=== PATIENT | female | born 1980 | race Caucasian/White ===

== ENCOUNTER → 2018-06-26 15:12 | Outpatient (CLI) | payer BC, SELFPAY ==
[2015-06-03 06:14] VITALS: BMI 37.7
[2018-06-30 11:59] LABS: HPV Reflexed? NOT INDICATED
== END ==
PROVIDERS: Visit Provider Obstetrics & Gynecology
DX: Z12.4 Encounter for screening for malignant neoplasm of cervix (principal)
CPT/HCPCS: 88175; G0145

== ENCOUNTER → 2020-03-23 15:00 | Outpatient (CLI) | payer BC, SELFPAY ==
--- NOTE | 2020-03-23 15:02 | BI_ITS ---
MAMMOGRAPHY - BILATERAL SCREENING REASON FOR EXAM: Female, 40 years old. Routine annual screening examination. PERTINENT HISTORY: Non-contributory. TECHNIQUE: Digital bilateral breast garrett (3D mammographic acquisition) in the CC and MLO projections. 2-D mediolateral oblique (MLO) and craniocaudad (CC) views of both breasts were obtained. CAD: Full Field Digital Mammography with Computer Added Detection was performed. COMPARISON: None. Baseline examination. FINDINGS: Breast Composition: The breasts are extremely dense, which lowers the sensitivity of mammography. There are no dominant masses or suspicious calcifications. No other significant abnormalities are identified. BI/SCREEN MAMM (CAD) W/GARRETT BILAT IMPRESSION: Negative screening mammogram. Yearly followup mammogram recommended. (A) ASSESSMENT CATEGORY: BIRADS Category 1: Negative. A letter regarding these results will be sent to the patient by the facility within 30 days. Approximately 10% of breast cancers are not detected by mammography. A normal mammogram should not delay biopsy of a clinically suspicious abnormality. [id number] Electronically Signed: Asaf Childress, at 8:02 EST , Service support ,
== END ==
PROVIDERS: PCP Physician Assistant; Referring Provider Student in an Organized Health Care Education/Training Program; Visit Provider Student in an Organized Health Care Education/Training Program
DX: Z12.31 Encounter for screening mammogram for malignant neoplasm of breast (principal)
CPT/HCPCS: 77063; 77067

== ENCOUNTER 2021-07-22 17:23 | Outpatient (CLI) | payer BC, SELFPAY ==
[2021-07-29 13:04] LABS: HPV APTIMA, High Risk Negative (Negative)
== END 2021-07-22 23:59 | disposition home or self-care (01) ==
PROVIDERS: PCP Physician Assistant; Referring Provider Student in an Organized Health Care Education/Training Program; Visit Provider Student in an Organized Health Care Education/Training Program
DX: Z12.4 Encounter for screening for malignant neoplasm of cervix (principal)
CPT/HCPCS: 87624; 88175; G0145

== ENCOUNTER → 2021-08-23 | Outpatient (CLI) | payer BC, SELFPAY ==
--- NOTE | 2021-08-23 15:37 | BI_ITS ---
MAMMOGRAPHY - BILATERAL SCREENING REASON FOR EXAM: Female, 41 years old. Routine annual screening examination. PERTINENT HISTORY: Non-contributory. TECHNIQUE: Digital bilateral breast garrett (3D mammographic acquisition) in the CC and MLO projections. 2-D mediolateral oblique (MLO) and craniocaudad (CC) views of both breasts were obtained. CAD: Full Field Digital Mammography with Computer Added Detection was performed. COMPARISON: Comparison is made with prior study dated 03/23/2020. FINDINGS: Breast Composition: The breasts are extremely dense, which lowers the sensitivity of mammography. There are no dominant masses or suspicious calcifications. No other significant abnormalities are identified. There has been no significant change since the prior study. BI/SCRN MAMM (CAD)W/GARRETT BILAT IMPRESSION: Stable bilateral screening mammogram. Yearly follow-up mammogram recommended. (A) ASSESSMENT CATEGORY: BIRADS Category 1: Negative. A letter regarding these results will be sent to the patient by the facility within 30 days. Approximately 10% of breast cancers are not detected by mammography. A normal mammogram should not delay biopsy of a clinically suspicious abnormality. [id number] Electronically Signed: Asaf Childress MD at 8:22 EDT ,
== END | disposition home or self-care (01) ==
LOC: OPBI 15:34
PROVIDERS: PCP Physician Assistant; Visit Provider Student in an Organized Health Care Education/Training Program
DX: Z12.31 Encounter for screening mammogram for malignant neoplasm of breast (principal)
CPT/HCPCS: 77063; 77067

== ENCOUNTER 2024-10-23 06:28 | Emergency (ER) | payer BC, SELFPAY ==
[2024-10-23 06:29] VITALS: BP 156/98; PULSE 84; RESP 18; TEMP 36.6; O2SAT 100; BMI 35.7
--- NOTE | 2024-10-23 06:49 | US_ITS ---
EXAM: US Abdomen Limited, Right Upper Quadrant CLINICAL INDICATION: ABDOMEN PAIN TECHNIQUE: Real-time ultrasound of the right upper quadrant with image documentation. COMPARISON: No relevant prior studies available. FINDINGS: LIVER: Liver measures up to 16.5 cm. No intrahepatic bile duct dilation. GALLBLADDER: Cholelithiasis. Negative Xie's sign was reported by the professor computer science. COMMON BILE DUCT: Unremarkable as visualized. No stones. No dilation. Common bile duct measures 0.54 cm in diameter. PANCREAS: Unremarkable as visualized. RIGHT KIDNEY: Unremarkable. No stones. No hydronephrosis. The right kidney measures 11.5 x 6.0 x 5.0 cm. US/Abdomen Limited IMPRESSION: Cholelithiasis. No convincing evidence of acute cholecystitis. Reading [facility]
--- NOTE | 2024-10-23 06:50 | EDS_ITS ---
HPI History of Present Illness Chief Complaint: Abd Pain Detail of Chief Complaint: Right upper quadrant abdominal pain radiates to her back Informant: patient Onset/Context/Timing Onset: Today (0230) Context: Sudden Onset Timing: Continuous and Waxes and wanes Quality: Fullness, discomfort Location: Right upper quadrant Current Severity: Mild Maximum Severity: Severe Worsened by: Nothing Relieved by: Nothing Associated Symptoms Associated Symptoms: Nausea Narrative Narrative: Patient is a 44-year-old woman who is present on her menses who presents with right upper quadrant pain rating to her back that awoke her from sleep at 0230. Last evening she had chicken with potato and vegetables. She did have butter on her potato and vegetables. At 2230 she had cookies and donuts. She has had pain in the past but nothing that lasted this long. Her mother, sister and brother all had their gallbladder removed. She has had 2 C-sections. She denies any change in her bowels i.e. color, consistency or caliber. She denies fever, chills night sweats. She denies vomiting or diarrhea. She denies cough or shortness of breath. She denies discomfort with breathing. Prior similar symptoms: No Recent Illness/Hospitalization: No PFSH PFS Medical History Marijuana smoker Home Medications ?Medication ?Instructions ?Recorded ?Last Taken ?Type NK 10/23/24 Unknown History Allergy/AdvReac Type Severity Reaction Status Date / Time latex Allergy Rash Verified 10/23/24 06:29 diphenhydramine HCl (From AdvReac Other Verified 10/23/24 06:29 Benadryl) Family History other other (Multiple for members with cholecystitis/cholelithiasis.) Surgical History Hx of section Social History (Updated 10/23/24 @ 06:[address] Garfield Bruner MD) household members: spouse and children Smoking Status: Current every day smoker tobacco type: cigarettes ROS ROS ED Constitutional Constitutional ED: Denies chills, fever(s), subjective or sweats Cardiovascular Cardiovascular: Denies chest pain, orthopnea, palpitations or paroxysmal nocturnal dyspnea Respiratory/Chest Respiratory/Chest: Denies cough, dyspnea, dyspnea on exertion, orthopnea or paroxysmal nocturnal dyspnea Gastrointestinal Gastrointestinal: Reports abdominal pain; Denies constipation, diarrhea, melena or vomiting Genitourinary Genitourinary ED: Reports LMP (females 10-50) Details: Comment: (Currently); Denies dysuria, hematuria or urinary frequency Musculoskeletal Musculoskeletal: Reports back pain and other Details: Intrascapular back pain ; Denies arthralgias or myalgias Integumentary Denies rash Endocrine Endocrinology: Denies cold intolerance or heat intolerance Hematologic/Lymphatic Hematologic/Lymphatic: Reports systems reviewed and no addt'l complaints, except as documented EXAM Physical Exam Const Vital Signs: 10/23/24 06:29 10/23/24 09:40 Temperature 97.9 F Temperature Source Oral Pulse Rate 84 76 Respiratory Rate 18 19 H Blood Pressure 156/98 H Blood Pressure Mean 117 Pulse Ox 100 Oxygen Delivery Method Room Air Positive well nourished and well developed Constitutional Narrative: BMI is 35.7. Patient does not appear in any obvious distress. General Appearance ED: well developed; Negative for cyanotic, diaphoretic or pallor HEENT Reports moist mucous membranes HEENT Narrative: Head is atraumatic no cephalic. Ears normal. Nares patent. Posterior pharynx normal. Eyes PERRL and EOMs intact bilaterally General Eye ED: Negative for scleral icterus Neck no lymphadenopathy, supple and no JVD Resp normal respiratory effort and clear to auscultation bilaterally Cardio regular rate, regular rhythm, S1 normal heart sound, S2 normal heart sound and no murmurs GI non-distended and no masses; Negative for non-tender or hepatosplenomegaly Auscultation: hypoactive bowel sounds Palpation: soft and tender RUQ and Xie's sign; Negative for splenomegaly, mass or rebound tenderness present Back/Spine no CVA tenderness Extremity normal to inspection General Extremety ED: Negative for edema General Extremity: Negative for edema Neuro oriented x3 and CN's II-XII intact bilaterally Sensorium / Orientation: alert Psych mental status grossly normal Skin no rashes or lesions noted, no wounds and skin turgor normal General Skin Exam: Negative for jaundice or pallor MDM MDM MDM Narrative Medical decision making narrative: Patient with right upper quadrant pain. Differential diagnosis is biliary colic, cholelithiasis, acute cholecystitis, peptic ulcer disease, lower lobe pneumonia, abdominal pain of unknown etiology, atypical presentation for ureterolithiasis. Since she has not had a need to eat since 20-30 last evening ultrasound of the gallbladder was ordered as well as appropriate labs which included CBC, hepatic panel and lipase. Patient was medicated with IV ketorolac. Patient states she has difficulty swallowing pills. History & Record Review Additional record(s) reviewed:: Prior inpatient record (Notes by Saad Marcial for delivery May 2015.) Lab Data Attestation: I reviewed the patient's lab results. (CBC is unremarkable. Electrolyte panel is unremarkable. Glucose is elevated 109. Liver enzymes and lipase are normal.) Labs: Laboratory Results - last 24 hr 10/23/24 06:45 WBC 10.3 RBC 5.24 Hgb 14.2 Hct 43.3 MCV 82.6 MCH 27.1 MCHC 32.8 RDW Std Deviation 45.6 H RDW Coeff of [place] 15.2 H Plt Count TNP MPV 10.9 Immature Gran % (Auto) 0.400 Neut % (Auto) 60.1 Lymph % (Auto) 29.7 [place] % (Auto) 6.0 Eos % (Auto) 3.2 Baso % (Auto) 0.6 Absolute Neuts (auto) 6.2 Absolute Lymphs (auto) 3.04 Nucleated RBC % 0 Differential Comment SCANNED Platelet Estimate ADEQUATE Plt Morphology Comment CLUMPED Sodium 137 Potassium 5.0 Chloride 103 Carbon Dioxide 22.4 Anion Gap 12 BUN 13 Creatinine 0.73 Estim Creat Clear Calc 109.58 Est GFR (MDRD) Non-Af 103 BUN/Creatinine Ratio 17.5 Glucose 109 H Calcium 9.1 Total Bilirubin 0.20 Direct Bilirubin < 0.08 AST 27 ALT 21 Alkaline Phosphatase 75 Total Protein 7.3 Albumin 4.1 Globulin 3.2 Lipase 47 Radiography Diagnostic Testing: Clinical Impression(s) from Imaging Studies Abdomen Ultrasound 10/23/24 06:49 IMPRESSION: Cholelithiasis. No convincing evidence of acute cholecystitis. Reading Location: [facility] There are stones noted in the gallbladder. Gallbladder wall is slightly thickened. There is no evidence of pericholecystic fluid. Awaiting formal read by radiologist, 0940 Treatment and Re-Evaluation :: Patient was informed at 1011 radiologist to patient. Since she is pain-free will discharge home with appropriate home-going instruction and referral to Dr. Stovall. Discharge Plan Triage Chief Complaint: Abd Pain ED Provider: Garfield Bruner Dx/Rx/DC Orders Clinical Impression: Cholelithiasis, Biliary colic, Adult BMI 35.0-35.9 kg/sq m, Elevated blood- pressure reading without diagnosis of hypertension Instructions: ED Gallstones with Biliary Colic, ED Hypertension, To Be Confirmed Prescriptions: No Action NK Primary Care Provider: Jair Barragan Referrals: Chaparrita Stovall MD [Med Staff - Active Staff] - 5-7 Days Thom Geller PA [Non-Staff] - 1-2 Weeks Activity Restrictions/Additional Instructions: Your blood pressure is elevated. You should have this reassessed in 1 to 2 weeks. You are referred to a surgeon because you have gallstones and this is the cause of your intermittent pain and pain last evening. Recommend contacting her for follow-up and discuss treatment options Print Language: [place]an Disposition Disposition: Home, Self Care
[2024-10-23 07:05] LABS: Hematocrit 43.3 % (37-47); Hemoglobin 14.2 g/dL (12.0-15.0); Immature Granulocytes Count 0.040 X10^3/uL (0.0-0.0); Mean Corp Hgb Conc 32.8 g/dL (32-36); Mean Corpuscular Volume 82.6 fL (81-99); Mean Platelet Vol. 10.9 fl (6.2-12.0); NRBC Flagged by Analyzer 0 % (0-5); POSITIVE COUNT YES; RBC Distribution Width CV 15.2 % (11.6-14.6); RBC Distribution Width SD 45.6 fl (35.1-43.9); Red Blood Count 5.24 M/mm3 (4.2-5.4); White Blood Count 10.3 K/mm3 (4.4-11.0)
[2024-10-23 07:26] LABS: Differential Indicated SCAN CRITERIA MET
[2024-10-23 07:27] LABS: Differential Comment SCANNED
[2024-10-23 07:28] LABS: Lipase 47 U/L (13-75)
[2024-10-23 07:35] LABS: AST(SGOT) 27 U/L (<=31); Alanine Aminotransfer ALT/SGPT 21 U/L (<=34); Albumin, Serum 4.1 g/dL (3.5-5.0); Alkaline Phosphatase 75 U/L (35-104); Anion Gap 12 (5-15); BUN 13 mg/dL (4-19); BUN/Creat Ratio 17.5 RATIO (10-20); Bilirubin, Direct < 0.08 mg/dL (0.00-0.30); Calcium,Total 9.1 mg/dL (7.6-11.0); Carbon Dioxide 22.4 mmol/L (21.0-32.0); Chloride 103 mmol/L (98-108); Estimated Creatinine Clearance 109.58 ml/min (50-250); Globulin 3.2 g/dL (2.2-4.2); Glucose 109 mg/dL (70-99); Potassium 5.0 mmol/L (3.3-5.1)
--- OUTSIDE RECORDS SUMMARY | 2024-10-23 07:51 | XMS RPT_ITS | CCD ---
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 Helper Name Role Phone Thom Geller PA-C Primary Care Provider Thom GELLER Primary Care Unavailable Thmo GELLER Referring Unavailable GELLERThom Primary Care Unavailable Thom GELLER Referring Unavailable GELLERThom Primary Care Unavailable GELLERThom Referring Unavailable GELLERThom Primary Care Unavailable Thom GELLER Attending Unavailable GELLERThom Primary Care Unavailable MARGARET TURNER Attending Unavailable GELLERThom Primary Care Unavailable GELLERThom Attending Unavailable GELLERThom Primary Care Unavailable GELLER, Thom NEELY Primary Care Unavailable GELLER, Thom STANLEYFLORINDA Referring Unavailable Allergies Allergy Classification Reported Allergen(s) Allergy Type Date of Onset Reaction(s) Facility (17 sources) Latex; Translations: [LATEX] Propensity to adverse reactions 08-01-19 08 Rash [facility] Work Phone: (15 sources) Seasonal allergy; Translations: [SEASONAL ALLERGIES] Allergy to substance 12-25-19 19 Other: See Comments [facility] Work Phone: (2 sources) diphenhydrAMINE Drug Allergy 06-03-19 16 Other [facility] Work Phone: Medications Current Medications Medication Drug Class(es) Dates Sig (Normalized) Sig (Original) benzonatate 100 mg oral capsule (1 source) Non-narcotic Antitussive Start: 09-06-2023 End: 09-13-2023 take 1 capsule by mouth every eight hours as needed benzonatate (TESSALON PERLE) 100 mg capsule Take 1 capsule by mouth three times a day as needed for cough for up to 7 days. 21 capsule 0 09/06/2023 09/13/2023 Active calcium carbonate 500 mg chewable tablet (2 sources) Start: 06-03-2015 take 500 mg by mouth every four hours as needed Calcium Carbonate Active 500 MG PO EVERY 4 HOURS NEEDED June 03, 2015 7:17am docusate sodium 50 mg / sennosides, longterm 8.6 mg oral tablet (2 sources) Start: 06-05-2015 take 1 tablet by mouth once daily Sennosides-Docusa te Sodium (Stool Softener-Stimulan t Laxat) 1 TABLET tablet Active 1 TABLET PO DAILY June 05, 2015 9:11am fluticasone propionate 0.05 mg/actuat metered dose nasal spray (3 sources) Corticosteroid Start: 09-06-2023 take 1 spray(s) nasal route once daily fluticasone (FLONASE ALLERGY RELIEF) 50 mcg/actuation nasal spray Use 1 Bowler in each nostril once daily. 11.1 mL 0 09/06/2023 Active naproxen 250 mg oral tablet (2 sources) Nonsteroidal Anti-inflammatory Drug Start: 06-05-2015 take 250-500 mg by mouth every eight hours as needed Naproxen Active 250 - 500 MG PO EVERY 8 HOURS NEEDED June 05, 2015 9:11am oxyCODONE hydrochloride 5 mg oral tablet (2 sources) Opioid Agonist Start: 06-05-2015 take 5-10 mg by mouth every four hours as needed Oxycodone Active 5 - 10 MG PO EVERY 4 HOURS NEEDED June 05, 2015 9:11am PARoxetine hydrochloride 10 mg oral tablet (2 sources) Serotonin Reuptake Inhibitor Start: 09-26-2023 take 1 tablet by mouth once daily PARoxetine (PAXIL) 10 mg tablet Indications: Menstrual-related mood disorder , GUI (generalized anxiety disorder) Take 1 tablet by mouth once daily. 30 tablet 2 09/26/2023 Active Vit,Nqgf77-Hjwd-Pxf ic (Prenatabs Fa) 1 TABLET tablet (2 sources) Start: 06-03-2015 take 1 tablet by mouth once daily Vit,Mhjx35-Diqu-W olic (Prenatabs Fa) 1 TABLET tablet Active 1 TABLET PO DAILY June 03, 2015 7:17am Completed/Discontinued Medications Medication Drug Class(es) Dates Sig (Normalized) Sig (Original) busPIRone hydrochloride 10 mg oral tablet (3 sources) Start: 11-23-2020 End: 11-07-2022 take 1 tablet by mouth twice daily busPIRone (BUSPAR) 10 mg tablet Indications: Adjustment reaction with anxiety and depression Take 1 tablet by mouth twice daily. 60 tablet 2 11/23/2020 11/07/2022 Discontinued (Discontinued by Patient) Comment on above: Take 1 tablet by anastacio twice daily. lidocaine hydrochloride 20 mg/ml mucous membrane topical solution (1 source) Antiarrhythmic, Amide Local Anesthetic Start: 09-18-2022 End: 11-07-2022 LIDOCAINE VISCOUS 2 % solution Indications: Sore throat Take 5-10 mL by mouth four times daily as needed. 100 mL 1 09/18/2022 11/07/2022 Discontinued (Course of therapy completed) Comment on above: Take 5-10 mL by mout h four times daily as needed. polymyxin b [id number] unt/ml / trimethoprim 1 mg/ml ophthalmic solution (3 sources) Dihydrofolate Reductase Inhibitor Antibacterial, Polymyxin-class Antibacterial Start: 03-05-2021 End: 11-07-2022 take 1 drop(s) into the eye(s) four times daily trimethoprim-poly myxin (POLYTRIM) 10,000 unit- 1 mg/mL ophthalmic solution Use 1 Drop in both eyes four times daily. 10 mL 0 03/05/2021 11/07/2022 Discontinued (Course of therapy completed) Comment on above: Use 1 Drop in both e yes four times daily. 24 hr venlafaxine 150 mg extended release oral capsule (3 sources) Serotonin and Norepinephrine Reuptake Inhibitor Start: 10-01-2019 End: 11-07-2022 take 1 capsule by mouth once daily venlafaxine ER (EFFEXOR XR) 150 mg 24 hr capsule Indications: Adjustment reaction with anxiety and depression Take 1 capsule by mouth once daily. 90 capsule 3 10/01/2019 11/07/2022 Discontinued (Discontinued by Patient) Comment on above: Take 1 capsule by mo [facility] once daily. Problems Active Problems Problem Classification Problem Date Documented Date Episodic/Chronic Adjustment disorders (15 sources) Adjustment disorder with mixed anxiety and depressed mood; Translations: [Adjustment disorder with mixed anxiety and depressed mood] Onset: 01-13-2009 01-14-2019 Chronic Anxiety disorders (2 sources) Mixed anxiety and depressive disorder; Translations: [Other specified anxiety disorders] Chronic Immunizations and screening for infectious disease (4 sources) Viral screening status; Translations: [Encounter for screening for other viral diseases] Onset: 11-07-2022 11-07-2022 Episodic Mood disorders (1 source) Premenstrual tension syndrome; Translations: [Mood disorder due to known physiological condition, unspecified] 09-26-2023 Episodic Other circulatory disease (1 source) Elevated blood-pressure reading without diagnosis of hypertension; Translations: [Elevated blood-pressure reading, without diagnosis of hypertension] Episodic Other female genital disorders (14 sources) Premenstrual tension syndrome; Translations: [Premenstrual tension syndrome] Onset: 01-04-2013 01-04-2013 Chronic Other screening for suspected conditions (not mental disorders or infectious disease) (20 sources) Patient encounter status; Translations: [Encounter for screening mammogram for malignant neoplasm of breast] Onset: 11-07-2022 Episodic Other upper respiratory infections (1 source) Acute upper respiratory infection; Translations: [Acute upper respiratory infection, unspecified] 09-27-2023 Episodic Substance-related disorders (14 sources) Tobacco dependence syndrome; Translations: [Nicotine dependence, unspecified, uncomplicated] Onset: 01-13-2009 01-13-2009 Chronic Viral infection (1 source) Viral disease; Translations: [Viral infection, unspecified] 09-06-2023 Episodic Past or Other Problems Problem Classification Problem Date Documented Da te Episodic/Chronic Malaise and fatigue (4 sources) Attacks of weakness; Translations: [Weakness] Onset: 11-07-2022 11-07-2022 Episodic Residual codes; unclassified (14 sources) Family history of diabetes mellitus type 2; Translations: [Family history of diabetes mellitus] Onset: 10-01-2019 10-01-2019 Episodic Results Test Name Value Interpretation Reference Range Facil ity Aram 11-01-2023 CNCO Letter Text Normal [facility] Cyndie 10-18-2023 CNOV Office Visit (OBGYWM ) MICHELLE ELLIS ([id number]) 1980 F Date Time Provider Department 10/18/23 2:20 PM MARGARET TURNER During your visit today, we recorded the following information about you: Blood pressure Weight Height Last Period 110/80 91.8 kg 1.613 m 10/11/23 Margaret Turner MD 10/18/2023 2:52 PM Signed Vice President Business Development offered: Patient declinesChantle Martinez is a 43 year old who presents for an annual gynecologic exam without complaints. Recently prescribed paxil for premenstrual rage. Has not picked it up yet. Menses: cycles every 23-33 days and 2-3 days of flow. Contraception: tubal sterilization HPV vaccine: No Last Pap: normal HPV: negative History of abnormal pap: No Last mammogram: 2022normal Sexually active: Yes OB History T0 L0 SAB0 IAB0 Ectopic0 Multiple0 Live Births0 Belly Packer History LMP: 10/11/2023, Having periods Age at Menarche: Age at First : Age at Menopause: Belly Packer History Comments: Sexual Activity: Yes; Male Contraception: Tubal Ligation PAST MEDICAL HISTORY Diagnosis Date NEGATIVE MEDICAL HISTORY PAST SURGICAL HISTORY Procedure Laterality Date NONE FAMILY HISTORY Problem Relation Age of Onset Thyroid Mother other (prediabetes) Mother Cancer Father throat Bipolar disorder Brother Schizophrenia Brother Learning disabilities Brother No Known Problems Brother No Known Problems Brother No Known Problems Brother No Known Problems Brother No Known Problems Brother Thyroid Maternal Grandmother Heart Maternal Grandfather Lung Cancer Paternal Grandmother Colon Cancer Paternal Grandfather Diabetes Paternal Aunt Diabetes Paternal Uncle Diabetes Other SOCIAL HISTORY Social History Tobacco Use Smoking status: Every Day Packs/day: 1 Types: Cigarettes Smokeless tobacco: Never Vaping Use Vaping Use: Former Substance Use Topics Alcohol use: Yes Comment: 4 beers/ night Drug use: No REVIEW OF SYSTEMS Abdomen: No abdominal pain, nausea, vomiting, diarrhea, or constipation. No bloating, early satiety, indigestion, or increased flatulence. Bladder: No dysuria, gross hematuria, urinary frequency, urinary urgency, or incontinence. Breast: No breast lumps, nipple d/c, overlying skin changes, redness or skin retraction. Allergies and current medication updated:Yes EXAM: BP 110/80 Ht 5' 3.5 (1.61m) Wt 202 lb 6.4 oz (91.8kg) LMP 10/11/2023 BMI 35.29 kg/(m2). GENERAL: pleasant, female in no apparent distress HEENT: Normocephalic, atraumatic, mucus membranes moist, and no lesions NECK: Supple, full range of motion, no adenopathy, and thyroid normal DERMATOLOGY: Normal, without lesions, non-icteric, and non-hirsute BREAST: soft, non-tender, symmetric, no dominant mass, normal nipple-areolar complex, no lymphadenopathy, and no nipple discharge CHEST: Normal inspiratory effort ABDOMEN: soft, non-tender, and no masses PELVIC: external genitalia normal, normal Bartholin's glands, urethra, [place]'s glands, no vulvar lesions, no cervical lesions, good vaginal support, physiologic discharge present, normal appearing perineal body and perianal region BIMANUAL: uterus normal size, shape and consistency, no adnexal masses, and non-tender RECTOVAGINAL: deferred. NEURO: alert and oriented x3,exam grossly non-focal EXTREMITIES: normal ASSESSMENT/PLAN: 1) Health maintenance: Pap done with HPV. Mammogram up to date . 2) Contraception: tubal sterilization. Contraceptive options reviewed and information provided. 3) STD screening: Declined STD check. 4) Follow up one year or sooner as needed MD Vicente Christina Rebecca L, MD 10/31/2023 3:11 PM Signed Send letter about normal pap if she does not have mychart. MD Marjorie Cantu Michelle 11/01/2023 8:20 AM Signed Sent letter via my chart Allergies As of Date: 10/18/2023 Noted Allergy Reaction LATEX 08/01/2007 SEASONAL ALLERGIES 12/24/2018 14 - Other: See Comments Date Reviewed: 10/18/2023 Reviewed by: Margaret Turner MD - Fully Assessed Reason for Visit: Well Woman [1463] Primary Visit Diagnosis:Encounter for gynecological examination (general) (routine) without abnormal findings [Z01.419] Other Visit Diagnoses:Screening for cervical cancer [Z12.4] Encounter for screening for human papillomavirus (HPV) [Z11.51] Encounter for screening mammogram for breast cancer [Z12.31] Order(s):PAP TEST [[id number]] Order #: [id number]. #:[id number] HIGH RISK HUMAN PAPILLOMA VIRUS (HPV), PCR FOR DETECTION AND GENOTYPING [[id number]] Reflex Order#: [id number] (Ord#:[id number])Spec. #:[id number] Prescriptions as of 11/01/2023 - PARoxetine (PAXIL) 10 mg tablet Take 1 tablet by mouth once daily. - fluticasone (FLONASE ALLERGY RELIEF) 50 mcg/actuation nasal spray Use 1 Bowler in each nostril once mike (more content not included)... Normal [facility] HIGH RISK HUMAN PAPILLOMA BRADY (HPV), PCR FOR DETECTION AND GENOTYPINGon 10-18-2023 HPV 16 Ag Ql (Unsp spec) Not detected Normal Not detected [facility] Comment on above: Order Comment: Speci men Type: FLUID SPECIMENOrdering Facility: [facility] Address: [address] [place] [address] Performed By: #### H PVHRT, [id number] ####[facility] LABIA [id number] [place] [address] [place] HPV 18 Ag Ql (Unsp spec) Not detected Normal Not detected [facility] Comment on above: Order Comment: Speci men Type: FLUID SPECIMENOrdering Facility: [facility] Address: [address] [place] [address] Performed By: #### H PVHRT, [id number] ####[facility] LABIA [id number] [place] [address] [place] HPV 31+33+35+39+45+51+5 2+56+58+59+66+68 DNA ROSA ISELA+probe Ql (Cvx) Not detected Normal Not detected [facility] Comment on above: Order Comment: Speci men Type: FLUID SPECIMENOrdering Facility: [facility] Address: [address] [place] [address] Result Comment: High Risk HPV Other Type includes HPV types 31, 33, 35, 39, 45, 51, 52, 56, 58, 59, 66 and 68. Performed By: #### H PVHRT, [id number] ####[facility] LABCLIA [id number] [address] [address] [place] PAP TESTon 10-18-2023 ADEQUACY Satisfactory for interpretation. Normal [facility] Comment on above: Order Comment: Speci men Type: FLUID SPECIMENOrdering Facility: [facility] Address: [address] [place] [address] Performed By: #### H PVHRT, [id number] ####[facility] LABCLIA [id number] [place] [address] [place] CASE REPORT Normal [facility] Comment on above: Order Comment: Speci men Type: FLUID SPECIMENOrdering Facility: [facility] Address: [address] [place] [address] Result Comment: Gyne cologic Cytology Report Case: [id number] Authorizing Provider: Margaret Turner MD Collected: 10/18/2023 02:58 PM Ordering Location: OB/Gynecology Received: 10/18/2023 04:42 PM First Screen: Maryan Eng, CT, ASCP Specimen: Pap Test, ThinPrep, Cervix Performed By: #### H PVHRT, [id number] ####[facility] LABCLIA [id number] [place] [address] [place] CLINICAL HISTORY, CYTOLOGY, CHIMNEY BUILDER BRICK Routine Exam Normal [facility] Comment on above: Order Comment: Speci men Type: FLUID SPECIMENOrdering Facility: [facility] Address: [address] [place] [address] Performed By: #### H PVHRT, [id number] ####[facility] LABCLIA [id number] [address] [place] FINAL PERFORMING LAB Normal [facility] Comment on above: Order Comment: Speci men Type: FLUID SPECIMENOrdering Facility: [facility] Address: [address] [place] [address] Result Comment: Tech nical component, environmental manager screening performed at [facility], [facility] [address] CLIA# [id number] Diagnostic interpretation performed at [facility], [address] [place], [place] [address] CLIA# [id number] Meteorology Instructor: James Hall M.D. Performed By: #### H PVHRT, [id number] ####[facility] LABCLIA [id number] [place] [address] [place] HPV REFLEX Yes HPV Normal [facility] Comment on above: Order Comment: Speci men Type: FLUID SPECIMENOrdering Facility: [facility] Address: [address] [place] [address] Performed By: #### H PVHRT, [id number] ####[facility] LABCLIA [id number] [place] [address] [place] INTERPRETATION, CYTOLOGY, CHIMNEY BUILDER BRICK Normal [facility] Comment on above: Order Comment: Speci men Type: FLUID SPECIMENOrdering Facility: [facility] Address: [address] [place] [address] Result Comment: Nega tive for intraepithelial lesion or malignancy. Performed By: #### H PVHRT, [id number] ####[facility] LABCLIA [id number] [place] [address] [place] LMP 10/11/2023 Normal [facility] Comment on above: Order Comment: Speci men Type: FLUID SPECIMENOrdering Facility: [facility] Address: [address] [place] [address] Performed By: #### H PVHRT, [id number] ####[facility] LABCLIA [id number] [place] [address] [place] PAP DISCLAIMER COMMENT The Pap Smear is a screening test for cervical cancer. False negative results occur with all screening tests, emphasizing the need for rescreening at recommended intervals, and clinical correlation. Normal [facility] Comment on above: Order Comment: Speci men Type: FLUID SPECIMENOrdering Facility: [facility] Address: [address] [place] [address] Performed By: #### H PVHRT, [id number] ####[facility] LABCLIA [id number] [facility] [id number] [facility] CNOVon 09-26-2023 CNOV Office Visit (FAMPWS ) MICHELLE ELLIS ([id number]) 1980 F Date Time Provider Department 09/26/23 3:20 PM [facility] During your visit today, we recorded the following information about you: Pulse Respiration Blood pressure Weight 82/minute 16/minute 122/84 93 kg Thom Geller PA-C 09/27/2023 10:59 AM Signed 43 year old female with c/o f/u [facility] for treatment URI From record: Cough, chest congestion, runny nose and STORY x 1 week... malaise, sinus pain, sore throat, myalgias Rx fo benzonatate, fluticasone NS Afebrile Feeling down, anxious over last month. Struggling to go to work Brother , kids, addiction, brother getting out of assisted New job but $5 Now working [employer], not making much money. 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 Bleeding is heavy, 5 days, heavy first three day, quarter sized clots. Cycle q28 regularly, suddenly went 35 days HISTORIES FAMILY HISTORY Problem Relation Age of Onset Cancer Father throat Diabetes Paternal Aunt Diabetes Paternal Uncle Thyroid Mother other (prediabetes) Mother Thyroid Maternal Grandmother Diabetes Other PAST MEDICAL HISTORY Diagnosis Date NEGATIVE MEDICAL HISTORY PAST SURGICAL HISTORY Procedure Laterality Date NONE Social History Tobacco Use Smoking status: Every Day Packs/day: 1 Types: Cigarettes Smokeless tobacco: Never Substance Use Topics Alcohol use: Yes Comment: 4 beers/ night Drug use: No ACTIVE PROBLEM LIST Adjustment Reaction With Anxiety and Depression Tobacco Dependence Pms (Premenstrual Syndrome) Fh: Type 2 Diabetes Current Outpatient Medications Medication Sig Dispense Refill fluticasone (FLONASE ALLERGY RELIEF) 50 mcg/actuation nasal spray Use 1 Bowler in each nostril once daily. 11.1 mL 0 No current facility-administered medications for this visit. Hepatitis C Screening Never done Behavioral Health Screening Never done Mammogram Screening due on 01/07/2024 BP 122/84 Pulse 82 Resp 16 Wt 93 kg (205 lb) LMP 12/18/2018 SpO2 98% Pleasant obese adult woman in no acute distress. Alert and oriented all spheres. Normal affect and cognition. Speech normal. No deficits to learning or comprehension. Skin warm, dry, pink to lips and nailbeds. Normal turgor. Respirations regular and unlabored. HEENT: NCAT. No scleral icterus or conjunctival injection. TM's clear. Nose and oropharynx free from injection or lesion. Oral membranes moist and pink. No cervical lymph nodes. Thyroid non-tender, no masses, or enlargement. Carotids pulses 2+/4+ without bruits. No JVD with HOB at 30 degrees. Extrem: no clubbing or cyanosis. Edema: none. Extremities are warm and pink with prompt capillary refill. ASSESSMENT/PLAN: 1. Menstrual-related mood disorder - ICD9: 625.4, ICD10: F06.30 (primary diagnosis) Trial paroxetine for mood and early menopausal sx - PAROXETINE 10 MG TABLET Educated on new medication administration, warnings and cautions, common side effects, anticipated duration or therapy, and instructions on cessation management to avoid risks if stops medication. Patient choice was discussed in shared decision making. 2. GUI (generalized anxiety disorder) - ICD9: 300.02, ICD10: F41.1 - PAROXETINE 10 MG TABLET 3. Encounter for screening mammogram for malignant neoplasm of breast - ICD9: V76.12, ICD10: Z12.31 - Complete pelvic and breast exam with CHIMNEY BUILDER BRICK - Encouraged monthly BSE - Follow up for annual exam in one year. - PHILLIP SCREENING W GARRETT 4. URI, acute - ICD9: 465.9, ICD10: J06.9 - Discussed viral etiology and rationale for treatment. - Symptomatic treatment with prn analgesia - Supportive care with fluids and rest Behavioral Health Screening PHQ-9 Score: 9 (Mild Depression) GUI-7 Score: 10 (Moderate Anxiety) Recommendation: medication management Some of this note may have been copied and pasted for the purpose of history context and comparison. All questions listed were asked and adjusted for changes in prior data. NINFA Tovar M Gregory, PA-C 09/26/2023 4:05 PM Addendum Mychart progress in 4 weeks unless complications. Paroxetine: Patient drug information Access Right Relevance Online for additional drug information, tools, and databases. Copyright [employer]. All rights reserved. (For additional information see Paroxetine: Drug information and see Paroxetine: Pediatric drug information) Brand Names: [place] Brisdelle; Paxil; Paxil CR; Pexeva Brand Names: Kacey ACT PARoxetine [DSC]; AG-Paroxetine; APO-PARoxetine; Auro-PARoxetine; BIO-PARoxetine; DOM-PARoxetine; JAMP-PARoxetine; M-Paroxetine; Mar-PARoxetine; MINT-Paroxetine; MYLAN-PARoxetine [DSC]; NRA-Paroxetine; (more content not included)... Normal [facility] CNOVon 09-06-2023 CNOV Office Visit (UCWSTR ) MICHELLE ELLIS ([id number]) 1980 F Date Time Provider Department 09/06/23 10:45 AM FERDINAND REYNAGA [facility] During your visit today, we recorded the following information about you: Temperature Pulse Respiration Blood pressure 97.9 degrees 78/minute 18/minute 128/82 Weight 91.7 kg Ferdinand Reynaga, LELA.HYDRAULIC MINER 09/06/2023 11:27 AM Signed Subjective HPI Nontoxic-appearing female presents to urgent care with chief complaint of upper respiratory tract like infection. Duration of symptoms 1 week. Associated symptoms sore throat, nasal congestion, nasal discharge and nonproductive cough. Patient denies the use of any lqin-alq-hlqunby medications or home remedies for symptom management. Patient states recent sick contacts with similar signs and symptoms. Patient denies any productive cough, fever, chest pain, shortness of breath, pleuritic pain, rash, abdominal pain, nausea, vomiting or change in bowel or bladder habit. Denies chance of . Is not breast-feeding. .Patient presents with: Cough: Cough, chest congestion, runny nose and STORY x 1 week PAST MEDICAL HISTORY Diagnosis Date NEGATIVE MEDICAL HISTORY PAST SURGICAL HISTORY Procedure Laterality Date NONE ALLERGIES Latex and Seasonal Allergies MEDICATIONS No prescriptions on file. FAMILY HISTORY Problem Relation Age of Onset Cancer Father throat Diabetes Paternal Aunt Diabetes Paternal Uncle Thyroid Mother other (prediabetes) Mother Thyroid Maternal Grandmother Diabetes Other Social History Tobacco Use Smoking status: Every Day Packs/day: 1 Types: Cigarettes Smokeless tobacco: Never Substance Use Topics Alcohol use: Yes Comment: 4 beers/ night Drug use: No BP 128/82 Pulse 78 Temp 36.6 ?C (97.9 ?F) (Tympanic) Resp 18 Wt 91.7 kg (202 lb 2.6 oz) LMP 12/18/2018 SpO2 97% Review of Systems Constitutional: Positive for malaise/fatigue. Negative for chills and fever. HENT: Positive for congestion, sinus pain and sore throat. Negative for ear discharge and ear pain. Eyes: Negative for blurred vision, pain, discharge and redness. Respiratory: Positive for cough. Negative for hemoptysis, sputum production, shortness of breath, wheezing and stridor. Cardiovascular: Negative for chest pain. Gastrointestinal: Negative for abdominal pain, diarrhea, nausea and vomiting. Musculoskeletal: Positive for myalgias. Skin: Negative for itching and rash. Neurological: Negative for dizziness and headaches. Objective Physical Exam Constitutional: General: She is not in acute distress. Appearance: She is not diaphoretic. HENT: Head: Normocephalic. Jaw: No trismus, tenderness, swelling or pain on movement. Right Ear: Tympanic membrane, ear canal and external ear normal. Left Ear: Tympanic membrane, ear canal and external ear normal. Nose: Congestion present. Mouth/Throat: Mouth: Mucous membranes are moist. Pharynx: Oropharynx is clear. Uvula midline. No pharyngeal swelling, oropharyngeal exudate, posterior oropharyngeal erythema or uvula swelling. Eyes: Conjunctiva/sclera: Conjunctivae normal. Pupils: Pupils are equal, round, and reactive to light. Cardiovascular: Rate and Rhythm: Normal rate and regular rhythm. Heart sounds: Normal heart sounds. Pulmonary: Effort: Pulmonary effort is normal. No tachypnea, accessory muscle usage or respiratory distress. Breath sounds: Normal breath sounds. No stridor. No wheezing, rhonchi or rales. Abdominal: General: There is no distension. Palpations: Abdomen is soft. Tenderness: There is no abdominal tenderness. There is no guarding or rebound. Musculoskeletal: Cervical back: Normal range of motion and neck supple. No edema, erythema, rigidity or tenderness. No pain with movement. Normal range of motion. Lymphadenopathy: Cervical: No cervical adenopathy. Skin: General: Skin is warm and dry. Neurological: Mental Status: She is alert and oriented to person, place, and time. ASSESSMENT/PLAN: 1. Viral illness - ICD9: 079.99, ICD10: B34.9 - Discussed viral etiology and rationale for treatment. - Symptomatic treatment with prn analgesia - Supportive care with fluids and rest No evidence of bacterial infection. Patient was educated on supportive therapies. Patient will follow up with primary care provider as needed. Patient was instructed to immediately proceed to emergency room for any new, worsening, or symptoms lasting longer than anticipated. The patient's clinical presentation is otherwise unremarkable at this time. Based on exam and clinical finding, the patient is stable for discharge. Plan of care was discussed with patient. Patient verbalizes understanding and agrees to plan of care. This note was generated using [employer] software. It may contain errors in wording, punctuation, or spelling. Ferdinand (more content not included)... Normal [facility] CBC panel Auto (Bld)on 05-03 Erythrocyte distribution width (RBC) [Ratio] 15.7 % High 11.5-15.0 [facility] Comment on above: Order Comment: Speci men Type: BLOOD SPECIMENOrdering Facility: [facility] Address: [address] [place] [address] Performed By: #### 5 8410-2 ####[facility] LABCLIA [id number] [place] [address] [place] Hematocrit (Bld) [Volume fraction] 44.5 % Normal 36.0-46.0 [facility] Comment on above: Order Comment: Speci men Type: BLOOD SPECIMENOrdering Facility: [facility] Address: [address] [place] [address] Performed By: #### 5 8410-2 ####[facility] LABCLIA [id number] [place] [address] [place] Hemoglobin (Bld) [Mass/Vol] 14.3 g/dL Normal 11.5-15.5 [facility] Comment on above: Order Comment: Speci men Type: BLOOD SPECIMENOrdering Facility: [facility] Address: [address] [place] [address] Performed By: #### 5 8410-2 ####[facility] LABCLIA [id number] [place] [address] [place] MCH (RBC) [Entitic mass] 27.1 pg Normal 26.0-34.0 [facility] Comment on above: Order Comment: Speci men Type: BLOOD SPECIMENOrdering Facility: [facility] Address: [address] [place] [address] Performed By: #### 5 8410-2 ####[facility] LABCLIA [id number] [place] [address] [place] MCHC (RBC) [Mass/Vol] 32.1 g/dL Normal 30.5-36.0 [facility] Comment on above: Order Comment: Speci men Type: BLOOD SPECIMENOrdering Facility: [facility] Address: [address] [place] [address] Performed By: #### 5 8410-2 ####[facility] LABCLIA [id number] [place] [address] [place] MCV (RBC) [Entitic vol] 84.3 fL Normal 80.0-100.0 [facility] Comment on above: Order Comment: Speci men Type: BLOOD SPECIMENOrdering Facility: [facility] Address: [address] [place] [address] Performed By: #### 5 8410-2 ####[facility] [id number] [place] [address] [place] Nucleated RBC (Bld) [#/Vol] 10*3/uL Normal <0.01 [facility] Comment on above: Order Comment: Speci men Type: BLOOD SPECIMENOrdering Facility: [facility] Address: [address] [place] [address] Performed By: #### 5 8410-2 ####[facility] [id number] [place] [address] [place] Platelet mean volume (Bld) [Entitic vol] 11.1 fL Normal 9.0-12.7 [facility] Comment on above: Order Comment: Speci men Type: BLOOD SPECIMENOrdering Facility: [facility] Address: [address] [place] [address] Performed By: #### 5 8410-2 ####[facility] [id number] [place] [address] [place] Platelets (Bld) [#/Vol] 370 10*3/uL Normal 150-400 [facility] Comment on above: Order Comment: Speci men Type: BLOOD SPECIMENOrdering Facility: [facility] Address: [address] [place] [address] Performed By: #### 5 8410-2 ####[facility] LABIA [id number] [place] [address] [place] RBC (Bld) [#/Vol] 5.28 10*6/uL High 3.90-5.20 [facility] Comment on above: Order Comment: Speci men Type: BLOOD SPECIMENOrdering Facility: [facility] Address: [address] [place] [address] Performed By: #### 5 8410-2 ####[facility] LABCLIA [id number] [place] [address] [place] WBC (Bld) [#/Vol] 9.38 10*3/uL Normal 3.70-11.00 [facility] Comment on above: Order Comment: Speci men Type: BLOOD SPECIMENOrdering Facility: [facility] Address: [address] [place] [address] Performed By: #### 5 8410-2 ####[facility] LABCLIA [id number] [place] [address] [place] Comprehensive metabolic 2000 panelon 05-03-2023 Albumin [Mass/Vol] 4.5 g/dL Normal 3.9-4.9 [facility] Comment on above: Order Comment: Speci men Type: BLOOD SPECIMENOrdering Facility: [facility] Address: [address] [place] [address] Performed By: #### 2 4323-8, 47313-9 ####[facility] LABCLIA [id number] [place] [address] [place] ALP [Catalytic activity/Vol] 72 U/L Normal 34-123 [facility] Comment on above: Order Comment: Speci men Type: BLOOD SPECIMENOrdering Facility: [facility] Address: [address] [place] [address] Performed By: #### 2 4323-8, 23760-9 ####[facility] LABCLIA [id number] [place] [address] [place] ALT [Catalytic activity/Vol] 20 U/L Normal 7-38 [facility] Comment on above: Order Comment: Speci men Type: BLOOD SPECIMENOrdering Facility: [facility] Address: [address] [place] [id number] Performed By: #### 2 4323-8, 07449-2 ####[facility] LABCLIA [id number] [place] [address] [place] Anion gap [Moles/Vol] 11 mmol/L Normal 9-18 [facility] Comment on above: Order Comment: Speci men Type: BLOOD SPECIMENOrdering Facility: [facility] Address: [address] [place] [address] Performed By: #### 2 4323-8, 14868-3 ####[facility] LABCLIA [id number] [place] [address] [place] AST [Catalytic activity/Vol] 16 U/L Normal 13-35 [facility] Comment on above: Order Comment: Speci men Type: BLOOD SPECIMENOrdering Facility: [facility] Address: [address] [place] [address] Performed By: #### 2 4323-8, 43752-4 ####[facility] LABCLIA [id number] [place] [address] [place] Bilirubin [Mass/Vol] mg/dL Low 0.2-1.3 [facility] Comment on above: Order Comment: Speci men Type: BLOOD SPECIMENOrdering Facility: [facility] Address: [address] [place], [place] [address] Performed By: #### 2 4323-8, 83619-9 ####[facility] LABCLIA [id number] [place] [id number] [place] Calcium [Mass/Vol] 9.7 mg/dL Normal 8.5-10.2 [facility] Comment on above: Order Comment: Speci men Type: BLOOD SPECIMENOrdering Facility: [facility] Address: [address] [place], [place] [address] Performed By: #### 2 4323-8, 90838-8 ####[facility] LABCLIA [id number] [place] [address] [place] Chloride [Moles/Vol] 108 mmol/L High 97-105 [facility] Comment on above: Order Comment: Speci men Type: BLOOD SPECIMENOrdering Facility: [facility] Address: [address] [place] [address] Performed By: #### 2 4323-8, 45531-5 ####[facility] LABIA [id number] [place] [address] [place] CO2 [Moles/Vol] 23 mmol/L Normal 22-30 [facility] Comment on above: Order Comment: Speci men Type: BLOOD SPECIMENOrdering Facility: [facility] Address: [address] [place] [address] Performed By: #### 2 4323-8, 72805-2 ####[facility] LABIA [id number] [place] [address] [place] Creatinine [Mass/Vol] 0.65 mg/dL Normal 0.58-0.96 [facility] Comment on above: Order Comment: Speci men Type: BLOOD SPECIMENOrdering Facility: [facility] Address: [address] [place] [address] Performed By: #### 2 4323-8, 69135-7 ####[facility] [id number] [place] [address] [place] Creatinine and Glomerular filtration rate.predicted panel (S/P/Bld) 112 mL/min/1.73m??? Normal >=60 [facility] Comment on above: Order Comment: Speci men Type: BLOOD SPECIMENOrdering Facility: [facility] Address: [address] [place] [address] Result Comment: Elisa mated Glomerular Filtration Rate (eGFR) is calculated using the 2020 CKD-EPI creatinine equation. This equation utilizes serum creatinine, sex, and age as parameters. The creatinine assay has traceable calibration to isotope dilution-mass spectrometry. Refer to KDIGO guidelines for clinical interpretation. In patients with unstable renal function, e.g. those with acute kidney injury, the eGFR may not accurately reflect actual GFR. Performed By: #### 2 4323-8, 58588-4 ####[facility] LABCLIA [id number] [address] [address] [place] Glucose [Mass/Vol] 100 mg/dL High 74-99 [facility] Comment on above: Order Comment: Speci men Type: BLOOD SPECIMENOrdering Facility: [facility] Address: [address] [place] [address] Result Comment: The [place] Diabetes Association (ADA) provides guidance for cutoff values for fasting glucose and random glucose. The ADA defines fasting as no caloric intake for at least 8 hours. Fasting plasma glucose results between 100 to 125 mg/dL indicate increased risk for diabetes (prediabetes). Fasting plasma glucose results greater than or equal to 126 mg/dL meet the criteria for diagnosis of diabetes. In the absence of unequivocal hyperglycemia, results should be confirmed by repeat testing. In a patient with classic symptoms of hyperglycemia or hyperglycemic crisis, random plasma glucose results greater than or equal to 200 mg/dL meet the criteria for diagnosis of diabetes. Reference: Standards of Medical Care in Diabetes 2016, [place] [employer] Association. Diabetes Care. 2016.39(Suppl 1). Performed By: #### 2 4323-8, 03884-8 ####[facility] LABCLIA [id number] [address] [address] [place] Potassium [Moles/Vol] 5.0 mmol/L Normal 3.7-5.1 [facility] Comment on above: Order Comment: Fredericki men Type: BLOOD SPECIMENOrdering Facility: [facility] Address: [address] [place] [address] Performed By: #### 2 4323-8, 07453-1 ####[facility] LABCLIA [id number] [address] [address] [place] Protein [Mass/Vol] 7.4 g/dL Normal 6.3-8.0 [facility] Comment on above: Order Comment: Speci men Type: BLOOD SPECIMENOrdering Facility: [facility] Address: [address] [place] [address] Performed By: #### 2 4323-8, 18247-6 ####[facility] LABCLIA [id number] [place] [address] [place] Sodium [Moles/Vol] 142 mmol/L Normal 136-144 [facility] Comment on above: Order Comment: Speci men Type: BLOOD SPECIMENOrdering Facility: [facility] Address: [address] [place] [address] Performed By: #### 2 4323-8, 33506-0 ####[facility] LABCLIA [id number] [place] [address] [place] Urea nitrogen [Mass/Vol] 11 mg/dL Normal 7-21 [facility] Comment on above: Order Comment: Speci men Type: BLOOD SPECIMENOrdering Facility: [facility] Address: [address] [place] [address] Performed By: #### 2 4323-8, 27164-5 ####[facility] LABCLIA [id number] [place] [address] [place] Lipid 1996 panelon 4 Cholesterol [Mass/Vol] 160 mg/dL Normal <200 [facility] Comment on above: Order Comment: Speci men Type: BLOOD SPECIMENOrdering Facility: [facility] Address: [address] [place] [address] Result Comment: <200 mg/dL, Desirable 200-239 mg/dL, Borderline high >239 mg/dL, High Performed By: #### 2 4323-8, 54209-2 ####[facility] LABCLIA [id number] [place] [address] [place] Cholesterol in HDL [Mass/Vol] 56 mg/dL Normal >39 [facility] Comment on above: Order Comment: Speci men Type: BLOOD SPECIMENOrdering Facility: [facility] Address: [address] [place] [address] Result Comment: 40-5 9 mg/dL, Acceptable >59 mg/dL, High: Negative risk factor for coronary heart disease <40 mg/dL, Low: Positive risk factor for coronary heart disease Performed By: #### 2 4323-8, 55300-8 ####[facility] LABCLIA [id number] [place] [address] [place] Cholesterol in LDL [Mass/Vol] 90 mg/dL Normal <100 [facility] Comment on above: Order Comment: Speci men Type: BLOOD SPECIMENOrdering Facility: [facility] Address: [address] [place] [address] Result Comment: <100 mg/dL, Optimal 100-129 mg/dL, Near optimal/above optimal 130-159 mg/dL, Borderline high 160-189 mg/dL, High >189 mg/dL, Very high Secondary prevention optimal LDL Cholesterol levels are recommended to be < 70 mg/dL Performed By: #### 2 4323-8, 70752-9 ####[facility] LABCLIA [id number] [place] [address] [place] Cholesterol in LDL/Cholesterol in HDL [Mass ratio] 1.61 {ratio} Normal <2.54 [facility] Comment on above: Order Comment: Speci men Type: BLOOD SPECIMENOrdering Facility: [facility] Address: [address] [place] [address] Result Comment: Refkatie rence: 1. National Cholesterol Education Program ATP III Guideline At-A-Glance Quick Desk Reference: National Heart, Lung, and Blood [place]. National Institutes of Health. 2001: NIH Publication No. 01-3305. 2. An International Atherosclerosis Society position paper: global recommendations for the management of dyslipidemia: executive summary, Atherosclerosis. 2014: 232(2):410-413. Performed By: #### 2 4323-8, 77290-4 ####[facility] LABCLIA [id number] [place] [id number] [place] Cholesterol in VLDL [Mass/Vol] 14 mg/dL Normal <30 [facility] Comment on above: Order Comment: Speci men Type: BLOOD SPECIMENOrdering Facility: [facility] Address: [address] [place] [address] Performed By: #### 2 4323-8, 08822-1 ####[facility] LABCLIA [id number] [place] [id number] [place] Cholesterol non HDL [Mass/Vol] 104 mg/dL Normal <130 [facility] Comment on above: Order Comment: Speci men Type: BLOOD SPECIMENOrdering Facility: [facility] Address: [address] [place] [address] Result Comment: <130 mg/dL, Optimal 130-159 mg/dL, Near optimal/above optimal 160-189 mg/dL, Borderline high 190-219 mg/dL, High >219 mg/dL, Very high Secondary prevention optimal non HDL Cholesterol levels are recommended to be <100 mg/dL Performed By: #### 2 4323-8, 06640-0 ####[facility] LABCLIA [id number] [place] [address] [place] Cholesterol.total/C holesterol in HDL [Mass ratio] 2.86 {ratio} Normal <5.10 [facility] Comment on above: Order Comment: Speci men Type: BLOOD SPECIMENOrdering Facility: [facility] Address: [address] [place] [address] Performed By: #### 2 4323-8, ####[facility] LABCLIA [id number] [place] [id number] [place] FASTING TIME 12 hrs Normal [facility] Comment on above: Order Comment: Speci men Type: BLOOD SPECIMENOrdering Facility: [facility] Address: [address] [place] [address] Performed By: #### 2 4323-8, 23313-7 ####[facility] LABCLIA [id number] [place] [address] [place] Triglyceride [Mass/Vol] 69 mg/dL Normal <150 [facility] Comment on above: Order Comment: Speci men Type: BLOOD SPECIMENOrdering Facility: [facility] Address: [address] [place] [address] Result Comment: <150 mg/dL, Normal 150-199 mg/dL, Borderline high 200-499 mg/dL, High >499 mg/dL, Very high Performed By: #### 2 4323-8, 21443-5 ####[facility] LABCLIA [id number] [facility] [id number] [id number] [place] [facility] CNPNon 01-10-2023 [facility]HELLE [facility]LLIS ([id number]) 1980 F Date Time Provider Department 01/10/23 Thom [facility] During your visit today, we recorded the following information about you: Thom Geller PA-C 01/10/2023 10:10 AM Signed Radiologist asking for additional views unless there are mammograms outside [facility] available for comparison. If there are please send request for films and cancel following orders. Telephone on 01/10/23 [facility] RIGHT US BREAST LTD RIGHT ThanksRigo PA-C Harn Ma, Lisa 01/10/2023 10:55 AM Signed Pt is scheduled for today for diagnostic phillip Allergies As of Date: 01/10/2023 Noted Allergy Reaction LATEX 08/01/2007 SEASONAL ALLERGIES 12/24/2018 14 - Other: See Comments Date Reviewed: 11/07/2022 Reviewed by: Gypsy Pettit Ma - Fully Assessed Primary Visit Diagnosis:Inconclusive mammogram [R92.2] Order(s):[facility] [[id number]] Order #: [id number] FUTURE US BREAST LTD RIGHT [[id number]] Order #: [id number] FUTURE Problem List As Of Date 01/10/2023 Noted Resolved Adjustment reaction with anxiety and depression*01/13/2009 Tobacco Dependence [F17.200] 01/13/2009 PMS (premenstrual syndrome) [N94.3] 01/04/2013 FH: type 2 diabetes [Z83.3] 10/01/2019 Encounter Status:Closed by GYPSY PETTIT MA on 01/10/23 Normal [facility] PHILLIP DIAG W GARRETT RIGHTon [facility] PHILLIP DIAG W GARRETT RTon 023 PHILLIP DIAG W GARRETT RT * * *Final Report* * * DATE OF EXAM: Jan 10 2023 12:00PM WRW [id number] - PHILLIP DIAG W GARRETT RT / PROCEDURE REASON: Inconclusive mammogram * * * * Physician Interpretation * * * * RESULT: #[id number] - PHILLIP DIAG W GARRETT RT UNILATERAL RIGHT DIGITAL DIAGNOSTIC MAMMOGRAM TOMOSYNTHESIS WITH CAD: 01/10/2023 HISTORY: Rt breast call back/ /priors available for comparison Inconclusive Mammogram. RESULT: TECHNIQUE: The study was acquired using full field digital technology and interpreted from soft copy. Digital Breast Tomosynthesis (DBT) images were obtained and used to assist in the interpretation of this examination. Current study was also evaluated with a Computer Aided Detection (CAD). Comparison is made to exam dated: 01/06/2023 mammogram - [facility]. The right breast is heterogeneously dense, which may obscure small masses. Additional imaging was obtained. Focal area in question in the right breast in prior mammography is not reproduced and presumably represents superimposed breast tissue. There is a stable 7 mm asymmetry in the right breast middle depth medial region seen on the craniocaudal view only. No other significant masses or calcifications are seen in the breast. IMPRESSION: BENIGN FINDING The stable 7 mm asymmetry in the right breast resembles a lymph node and is benign. Prior outside films show this to be stable since 2019. There is no mammographic evidence of malignancy. Return to annual mammogram screening schedule is recommended. Lawson Dennis M.D. tab/penrad:01/10/2023 13:10:22 Film Sorter(s): RT Gal(R)(M), [facility] Mammogram BI-RADS: 2 Benign finding Multiple national specialty organizations have released breast cancer screening guidelines for women at average risk for developing breast cancer - guidelines that are based on both evidence and opinion, yet differ on when to start and how often to screen for breast cancer. With representation from Breast Imaging, Internal Medicine, Women's Health, Family Medicine, and Medical/Surgical Oncology, the [facility] has carefully reviewed the data and reached the following consensus: 1) All women should engage in shared decision-making with their providers to decide when to start and how often to screen; 2) All women should have the opportunity to start screening mammography at age 40; 3) For women ages 45-55, we recommend annual screening mammograms; 4) For women ages 55 and over, we support both the transition from an annual to a biennial interval if this aligns more with patient's values and preferences, or continuation with annual screening; 5) All women should discuss with their providers when to stop screening mammograms. [facility] Machine: Hudson Transcribe Date/Time: Jan 10 2023 11:17A Dictated by: LAWSON DENNIS MD This examination was interpreted and the report reviewed and electronically signed by: LAWSON DENNIS MD on Jan 10 2023 1:10PM EST [id number] [facility] LIAM Telephone ([facility]) MICHELLE ELLIS ([id number]) 1980 F Date Time Provider [facility] 01/[facility]23 [facility] During your visit today, we recorded the following information about you: Thom Geller PA-C 01/09/2023 7:13 AM Signed Needs additional views: Telephone on 01/09/23 [facility] DIAGNOSTIC RIGHT US BREAST LTD RIGHT Thanks, NINFA Murrell Ma, Kathryn 01/09/2023 9:22 AM Signed Message left for pt to call back for results. Imani Díaz MA, LPN 01/09/2023 10:06 AM Signed Pt notified of the need for additional views. Pt transferred to PSS to schedule. Imani Villalta LPN Allergies As of Date: 01/09/2023 Noted Allergy Reaction LATEX 08/01/2007 SEASONAL ALLERGIES 12/24/2018 14 - Other: See Comments Date Reviewed: 11/07/2022 Reviewed by: Gypsy Pettit Ma - Fully Assessed Reason for Visit: Results [95] Primary Visit Diagnosis:Inconclusive mammogram [R92.2] Order(s):[facility] DIAGNOSTIC RIGHT [[id number]] Order #: [id number] FUTURE BREAST LTD RIGHT [[id number]] Order #: [id number] FUTURE Problem List As Of Date 01/09/2023 Noted Resolved Adjustment reaction with anxiety and depression*01/13/2009 Tobacco Dependence [F17.200] 01/13/2009 PMS (premenstrual syndrome) [N94.3] 01/04/2013 FH: type 2 diabetes [Z83.3] 10/01/2019 Encounter Status:Closed by IMANI VILLALTA LPN on 01/09/23 [facility] CNPN Telephone (RADMN) MICHELLE ELLIS ([id number]) 1980 F Date Time Provider Department 01/09/23 KATT ARORA RADMN During your visit today, we recorded the following information about you: Allergies As of Date: 01/09/2023 Noted Allergy Reaction LATEX 08/01/2007 SEASONAL ALLERGIES 12/24/2018 14 - Other: See Comments Date Reviewed: 11/07/2022 Reviewed by: Gypsy Pettit Ma - Fully Assessed Reason for Visit: Mammogram Result Call Back [[id number]] Problem List As Of Date 01/09/2023 Noted Resolved Adjustment reaction with anxiety and depression*01/13/2009 Tobacco Dependence [F17.200] 01/13/2009 PMS (premenstrual syndrome) [N94.3] 01/04/2013 FH: type 2 diabetes [Z83.3] 10/01/2019 Encounter Status:Closed by HUMAIRA ATWOODMORALESN on 01/09/23 [facility] HNO ID: [id number] Author: Coordinator, Mammography Service: ? Author Type: Physician Type: Letter Filed: 01/09/2023 11:42 PM Note Text: January 09, 2023 PID: [id number] Michelle Ellsi [address] [place] [address] Dear Ms. Ellis, Your breast imaging exam 01/06/2023 showed a possible finding that may require additional imaging studies for a complete evaluation. However, we recognize you have prior imaging studies at facilities other than [facility], and would like the opportunity to compare your recent imaging with those studies to evaluate for any change. At this time, we have requested your prior studies. Your mammogram demonstrates that you have dense breast tissue, which could hide abnormalities. Dense breast tissue, in and of itself, is a relatively common condition. Therefore, this information is not provided to cause undue concern; rather, it is to raise your awareness and promote discussion with your health care provider regarding the presence of dense breast tissue in addition to other risk factors. If/when your prior studies arrive, a final report will be sent to your healthcare provider and/or you. In addition, you will receive a new result letter and or phone call If you need additional imaging. If we do not receive prior studies within 30 days of your exam, you will receive a reminder letter and or phone call to schedule your diagnostic imaging. Your imaging studies and reports are kept on file at [facility] as part of your permanent medical record, and are available for your continuing care. If you have any questions or concerns, please call [phone]. Thank you for choosing [facility] for your imaging needs. Sincerely, Dr. Arora Interpreting Radiologist [facility] (Old Films) Normal [facility] PHILLIP SCREENING W TOMOon 01-06 PHILLIP SCREENING W GARRETT * * *Final Report* * * DATE OF EXAM: Jan 06 2023 3:26PM [facility] 0582 - [facility] SCREENING W GARRETT / PROCEDURE REASON: multiple diagnoses * * * * Physician Interpretation * * * * RESULT: #[id number] - PHILLIP SCREENING W GARRETT BILATERAL DIGITAL SCREENING MAMMOGRAM TOMOSYNTHESIS WITH CAD: 01/06/2023 HISTORY: Multiple Diagnoses / Screening Mammogram-Patient reports NO symptoms. Prior outside mammography is not provided for comparison. RESULT: TECHNIQUE: The study was acquired using full field digital technology and interpreted from soft copy. Digital Breast Tomosynthesis (DBT) images were obtained and used to assist in the interpretation of this examination. Current study was also evaluated with a Computer Aided Detection (CAD). No prior exams were available for comparison. The breasts are heterogeneously dense, which may obscure small masses. There is an asymmetry in the right breast posterior depth medial region seen on the craniocaudal view only. There also is possible architectural distortion in the right breast middle depth lateral region seen on the craniocaudal view only. No other significant masses, calcifications, or other findings are seen in either breast. IMPRESSION: INCOMPLETE: NEEDS ADDITIONAL IMAGING EVALUATION The asymmetry in the right breast posterior depth medial region seen on the craniocaudal view only is indeterminate. Additional views are recommended unless previous films are received and show no significant interval change. The possible architectural distortion in the right breast middle depth lateral region seen on the craniocaudal view only is indeterminate. Additional views are recommended unless previous films are received and show no significant interval change. Katt Arora M.D., lp/hudson:01/08/2023 13:21:48 Film Sorter(s): RT Richelle(R)(M), [facility] letter sent: Comparison Films Needed Mammogram BI-RADS: 0 Incomplete: needs additional imaging evaluation If this report indicates you need additional imaging, and it has NOT yet been performed, please call , to schedule. We sincerely thank you for choosing the [facility] for your breast imaging needs. Multiple national specialty organizations have released breast cancer screening guidelines for women at average risk for developing breast cancer - guidelines that are based on both evidence and opinion, yet differ on when to start and how often to screen for breast cancer. With representation from Breast Imaging, Internal Medicine, Women's Health, Family Medicine, and Medical/Surgical Oncology, the [facility] has carefully reviewed the data and reached the following consensus: 1) All women should engage in shared decision-making with their providers to decide when to start and how often to screen; 2) All women should have the opportunity to start screening mammography at age 40; 3) For women ages 45-55, we recommend annual screening mammograms; 4) For women ages 55 and over, we support both the transition from an annual to a biennial interval if this aligns more with patient's values and preferences, or continuation with annual screening; 5) All women should discuss with their providers when to stop screening mammograms. [facility] Machine: Hudson Transcribe Date/Time: Jan 06 2023 3:06P Dictated by: KATT ARORA MD This examination was interpreted and the report reviewed and electronically signed by: KATT ARORA MD on Jan 08 2023 1:21PM EST [id number] [facility] MICHELLE ELLIS ([id number]) 1980 F Date Time Provider Department 11/17/22 Thom GELLER [facility] During your visit today, we recorded the following information about you: Thom Geller PA-C 11/17/2022 8:39 AM Signed Please schedule based on radiologist's recommendation Telephone on 11/17/22 PHILLIP SCREENING W GARRETT Thanks, NINFA Murrell Ma, Lisa 11/17/2022 8:59 AM Signed Patient did not answer, left message to call and ask for a nurse. Kelly Rodrigues, RN 11/17/2022 9:31 AM Signed Patient calls and notified that ultrasound of breasts was discontinued due to have to have mammogram with GARRETT first. Explained to patient that ultrasounds are more diagnostic if problems are found and mammogram with GARRETT is for screening. Patient voiced understanding. Transferred patient to schedule Mammogram with GARRETT Kelly Rodrigues RN Allergies As of Date: 11/17/2022 Noted Allergy Reaction LATEX 08/01/2007 SEASONAL ALLERGIES 12/24/2018 14 - Other: See Comments Date Reviewed: 11/07/2022 Reviewed by: Gypsy Pettit Ma - Fully Assessed Reason for Visit: Appointment [186] Primary Visit Diagnosis:Encounter for screening mammogram for malignant neoplasm of breast [Z12.31] Other Visit Diagnosis:Dense breasts [R92.2] Order(s):PHILLIP SCREENING W GARRETT [[id number]] Order #: [id number] FUTURE Problem List As Of Date 11/17/2022 Noted Resolved Adjustment reaction with anxiety and depression*01/13/2009 Tobacco Dependence [F17.200] 01/13/2009 PMS (premenstrual syndrome) [N94.3] 01/04/2013 FH: type 2 diabetes [Z83.3] 10/01/2019 Encounter Status:Closed by KELLY RODRIGUES on 11/17/22 [facility] CNOVon 11-07-2022 CNOV Office Visit (FAMPWS ) MICHELLE ELLIS ([id number]) 1980 F Date Time Provider Department 11/07/22 3:20 PM Thom GELLER [facility] During your visit today, we recorded the following information about you: Pulse Respiration Blood pressure Weight 93/minute 16/minute 118/76 95.7 kg Thom Geller PA-C 11/07/2022 5:51 PM Signed 42 year old female with c/o concern about transformation to diabetes. Last Monday stood up, felt shakey, limbs felt weak. Has happened a other times as well. Feeling tired all the time. Right upper arm hurting into shoulder Her mom was told she is diabetic: managed by losing weight. Very active running kids to and from activities. Mood stable, always cheerful and feels she is energetic Changed location in job, started in April, 40 minutes always. Menses very regular 27-28 days, heavy second day, clots size if a quarter to 50 cent piece. No incontinence No bowel issues Joints are doing okay- knows she needs to exercise. HISTORIES FAMILY HISTORY Problem Relation Age of Onset Cancer Father throat Diabetes Paternal Aunt Diabetes Paternal Uncle Thyroid Mother other (prediabetes) Mother Thyroid Maternal Grandmother Diabetes Other PAST MEDICAL HISTORY Diagnosis Date NEGATIVE MEDICAL HISTORY PAST SURGICAL HISTORY Procedure Laterality Date NONE Social History Tobacco Use Smoking status: Every Day Packs/day: 1.00 Types: Cigarettes Smokeless tobacco: Never Substance Use Topics Alcohol use: Yes Comment: 4 beers/ night Drug use: No ACTIVE PROBLEM LIST Adjustment Reaction With Anxiety and Depression Tobacco Dependence Pms (Premenstrual Syndrome) Fh: Type 2 Diabetes No current outpatient medications on file. No current facility-administered medications for this visit. HEPATITIS B(1 of 3 - 3-dose series) Never done COVID-19 VACCINE(1) Never done PNEUMOCOCCAL(1 - PCV) Never done HEPATITIS C SCREENING Never done DTAP,TDAP,TD(7 - Tdap) due on 06/18/2006 MAMMOGRAM due on 03/23/2021 DEPRESSION ASSESSMENT Never done EXAM: BP 118/76 Pulse 93 Resp 16 Wt 95.7 kg (211 lb) LMP 12/18/2018 SpO2 98% Pleasant adult woman in no acute distress. Alert and oriented all spheres. Normal affect and cognition. Speech normal. No deficits to learning or comprehension. Skin warm, dry, pink to lips and nailbeds. Normal turgor. No significant lesions. Respirations regular and unlabored. HEENT: NCAT. PERRLA. No scleral icterus or conjunctival injection. TM's clear. Nose and oropharynx free from injection or lesion. Oral membranes moist and pink. No cervical lymph nodes. Thyroid non-tender, no masses, or enlargement. Carotids pulses 2+/4+ without bruits. Neck veins flat. Chest is normal shape. Lungs are clear to all davis with good air exchange through out. HRRR without murmur or gallop. No lifts, heaves, or rubs. Abdomen: active bowel sounds throughout, soft, nontender, no masses or organomegaly. No CVAT. No abdominal bruits, axillary or inguinal nodes. Femoral pulses 2/4+ without bruit. Back relatively even hips and shoulders. Able to touch toes. . Extrem: no clubbing or cyanosis. Edema: none. Extremities are warm and pink with prompt capillary refill. Peripheral pulses 2/4+ Gait and balance normal. Sensation grossly intact. Negative findings: speech normal, mental status intact, cranial nerves 2-12 intact, muscle tone normal, DTRs 2/4+ and symmetric ASSESSMENT/PLAN: 1. Episodic weakness - ICD9: 728.87, ICD10: R53.1 (primary diagnosis) - CBC + DIFF - COMP METABOLIC PANEL - HGB A1C - TSH BLD 2. Fatigue, unspecified type - ICD9: 780.79, ICD10: R53.83 - CBC + DIFF - COMP METABOLIC PANEL - HGB A1C - TSH BLD 3. Dense breast tissue - ICD9: 793.82, ICD10: R92.2 Switch to ultrasound for future - US BREAST LTD LEFT - US BREAST LTD RIGHT 4. Encounter for screening mammogram for malignant neoplasm of breast - ICD9: V76.12, ICD10: Z12.31 - Encouraged monthly BSE - Follow up for annual exam in one year. - see CHIMNEY BUILDER BRICK for pap an pelvic - US BREAST LTD LEFT - US BREAST LTD RIGHT 5. Wellness examination - ICD9: V70.0, ICD10: Z00.00 - Counseled on healthy diet and regular exercise - Calcium intake with supplements or by diet of 1000 mg/day for under 50, 5498-0721 mg/day for 50+ - Discussed need and benefit for weight loss. BMI 35.11 kg/(m2) - Depression screening tool completed and reviewed with patient. Based on score and interview, patient is not at risk for depression and recommended no further intervention at this time. Thom Geller PA-C Some of this note may have been copied and pasted for the purpose of history context and comparison. Allergies As of Date: 11/07/2022 Noted Allergy Reaction LATEX 08/01/2007 SEASONAL ALLERGIES 12/24/2018 14 - Other: See Comments Date Reviewed: 11/07/2022 Reviewed by (more content not included)... Normal [facility] SCRN MAMM (CAD)W/GARRETT Pineda n 08-23-2021 SCRN MAMM (CAD)W/GARRETT BILAT [facility] Imaging Services [address] [place] [address] SCRN MAMM (CAD)W/GARRETT BILAT MR#: [id number] Acct: [id number] Name: MICHELLE ELLIS Rep #: [id number] : 1980 F 41 From: Asaf arias MD PCP: VANESSA Tovar Status: REG CLI Study: SCRN MAMM (CAD)W/GARRETT BILAT Date of Exam: 08/08 09/29 Exam# [id number] Ordering Dr: Mandy Watson DO MAMMOGRAPHY - BILATERAL SCREENING REASON FOR EXAM: Female, 41 years old. Routine annual screening examination. PERTINENT HISTORY: Non-contributory. TECHNIQUE: Digital bilateral breast garrett (3D mammographic acquisition) in the CC and MLO projections. 2-D mediolateral oblique (MLO) and craniocaudad (CC) views of both breasts were obtained. CAD: Full Field Digital Mammography with Computer Added Detection was performed. COMPARISON: Comparison is made with prior study dated 03/23/2020. FINDINGS: Breast Composition: The breasts are extremely dense, which lowers the sensitivity of mammography. There are no dominant masses or suspicious calcifications. No other significant abnormalities are identified. There has been no significant change since the prior study. BI/SCRN MAMM (CAD)W/GARRETT BILAT IMPRESSION: Stable bilateral screening mammogram. Yearly follow-up mammogram recommended. (A) ASSESSMENT CATEGORY: BIRADS Category 1: Negative. A letter regarding these results will be sent to the patient by the facility within 30 days. Approximately 10% of breast cancers are not detected by mammography. A normal mammogram should not delay biopsy of a clinically suspicious abnormality. [id number] Electronically Signed: Asaf Childress MD at 8:22 EDT , CC: VANESSA Geller; Dr. Mandy Watson DO [facility]: Signed Normal [facility] PAP IG HPV APTIMA 16/18,45on 07-29-2021 ADEQ Comment Normal . [facility] Comment on above: Order Comment: CYTOL OGY INFORMATION: - CLINICAL INFORMATION: ANNUAL - Non - DATE LMP/MENOPAUSE: 07/14/21 LMP - COLLECTION VIAL: Thin Prep Vial - CHIMNEY BUILDER BRICK SOURCE: CERVICAL/ENDOCERVICAL - COLLECTION TECHNIQUE: BRUSH/SPATULA Specimen Comment: [id number] Specimen Comment: No. of containers..01 ThinPrep Vial Result Comment: Sati sfactory for evaluation. Endocervical and/or squamous metaplastic cells (endocervical component) are present. Performed By: #### L 7400.0280 #### [facility] [address] [place], [place], [id number] COMMENT Comment Normal . [facility] Comment on above: Order Comment: CYTOL OGY INFORMATION: - CLINICAL INFORMATION: ANNUAL - Non - DATE LMP/MENOPAUSE: 07/14/21 LMP - COLLECTION VIAL: Thin Prep Vial - CHIMNEY BUILDER BRICK SOURCE: CERVICAL/ENDOCERVICAL - COLLECTION TECHNIQUE: BRUSH/SPATULA Specimen Comment: [id number] Specimen Comment: No. of containers..01 ThinPrep Vial Result Comment: This liquid based ThinPrep(R) pap test was screened with the use of an image guided system. Performed By: #### L [id number] #### [facility] [address] [place], [place], [id number] DIAG Comment Normal . [facility] Comment on above: Order Comment: CYTOL OGY INFORMATION: - CLINICAL INFORMATION: ANNUAL - Non - DATE LMP/MENOPAUSE: 07/14/21 LMP - COLLECTION VIAL: Thin Prep Vial - CHIMNEY BUILDER BRICK SOURCE: CERVICAL/ENDOCERVICAL - COLLECTION TECHNIQUE: BRUSH/SPATULA Specimen Comment: [id number] Specimen Comment: No. of containers..01 ThinPrep Vial Result Comment: NEGA TIVE FOR INTRAEPITHELIAL LESION OR MALIGNANCY. Performed By: #### L [id number] #### [facility] [address] [place], [place], [id number] HPV APTIMA, HR Negative Normal Negative [facility] Comment on above: Order Comment: CYTOL OGY INFORMATION: - CLINICAL INFORMATION: ANNUAL - Non - DATE LMP/MENOPAUSE: 07/14/21 LMP - COLLECTION VIAL: Thin Prep Vial - CHIMNEY BUILDER BRICK SOURCE: CERVICAL/ENDOCERVICAL - COLLECTION TECHNIQUE: BRUSH/SPATULA Specimen Comment: [id number] Specimen Comment: No. of containers..01 ThinPrep Vial Result Comment: This nucleic acid amplification test detects fourteen high- risk HPV types (16,18,31,33,35,39,45,51,52,56,58,59,66,68) without differentiation. Performed at: - [facility] [id number] Paint Specialist: Briseida Jason MD, Phone: [phone] Performed at: = - [facility] [id number] Paint Specialist: Briseida Jason MD, Phone: [phone] Performed By: #### L [id number] #### [facility] [address] [place], [place], [id number] PAPSMR Comment Normal . [facility] Comment on above: Order Comment: CYTOL OGY INFORMATION: - CLINICAL INFORMATION: ANNUAL - Non - DATE LMP/MENOPAUSE: 07/14/21 LMP - COLLECTION VIAL: Thin Prep Vial - CHIMNEY BUILDER BRICK SOURCE: CERVICAL/ENDOCERVICAL - COLLECTION TECHNIQUE: BRUSH/SPATULA Specimen Comment: [id number] Specimen Comment: No. of containers..01 ThinPrep Vial Result Comment: The Pap smear is a screening test designed to aid in the detection of premalignant and malignant conditions of the uterine cervix. It is not a diagnostic procedure and should not be used as the sole means of detecting cervical cancer. Both false-positive and false-negative reports do occur. Performed By: #### L 7400.0280 #### [facility] [address] [place], [place], [id number] PERFORM Comment Normal . [facility] Comment on above: Order Comment: CYTOL OGY INFORMATION: - CLINICAL INFORMATION: ANNUAL - Non - DATE LMP/MENOPAUSE: 07/14/21 LMP - COLLECTION VIAL: Thin Prep Vial - CHIMNEY BUILDER BRICK SOURCE: CERVICAL/ENDOCERVICAL - COLLECTION TECHNIQUE: BRUSH/SPATULA Specimen Comment: [id number] Specimen Comment: No. of containers..01 ThinPrep Vial Result Comment: Les Loaiza, Canal Superintendent (ASCP) Performed By: #### L [id number] #### [facility] [address] [place], [place], [address] COMM . Normal . [facility] Comment on above: Order Comment: CYTOL OGY INFORMATION: - CLINICAL INFORMATION: ANNUAL - Non - DATE LMP/MENOPAUSE: 07/14/21 LMP - COLLECTION VIAL: Thin Prep Vial - CHIMNEY BUILDER BRICK SOURCE: CERVICAL/ENDOCERVICAL - COLLECTION TECHNIQUE: BRUSH/SPATULA Specimen Comment: [id number] Specimen Comment: No. of containers..01 ThinPrep Vial Performed By: #### L 7400.0280 #### [facility] [address] [place], [place], [id number] Cervical or vagninal specime n microscopic examination by cytology stain (reported ason 07-22-2021 Cytology report Cyto stain Doc (Cvx/Vag) Comment [facility] Work Phone: Comment on above: The Pap smear is a s creening test designed to aid in thedetection of premalignant and malignant conditions of theuterine cervix. It is not a diagnostic procedure andshould not be used as the sole means of detecting cervicalcancer. Both false-positive and false-negative reports dooccur. Detection in cervical specim en of any of human papilloma virus (HPV) 16, 18, 31, 33,on 07-22-2021 HPV 16+18+31+33+35+39+4 5+51+52+56+58+59+66 +68 DNA Probe+sig amp Ql (Cvx) Negative Negative [facility] Work Phone: Comment on above: This nucleic acid am plification test detects fourteen high- risk HPV types (16,18,31,33,35,39,45,51,52,56,58,59,66,68)without differentiation.Performed at: - [facility] [id number] Director: Briseida Jason MD, Phone: [phone] at: = - [facility] [id number] Director: Briseida Jason MD, Phone: [phone] Laboratory - Cytologyon 07-09 Percussion Instrument Repairer Cyto stain Nom (Cvx/Vag) [ID] Comment [facility] Work Phone: Comment on above: Augustine Loaiza, Canal Superintendent (ASCP) Laboratory - Miscellaneous t estson 07-22-2021 Service comment (Unsp spec) [Interp] Comment [facility] Work Phone: Comment on above: This liquid based Th inPrep(R) pap test was screened withthe use of an image guided system. Service comment (Unsp spec) [Interp] . [facility] Work Phone: No Panel Informationon 07-22 Pathology report final diagnosis Narrative Comment [facility] Work Phone: Comment on above: NEGATIVE FOR INTRAEP ITHELIAL LESION OR MALIGNANCY. Vital Signs Date Time Vital Sign Value Performing Clinician Dontei joesph 10-18-2023 14:24-040 Body height 161.3 cm Margaret Turner MD Work Phone: [facility] 10-18-2023 14:24-0400 Body mass index (BMI) [Ratio] 35.29 kg/m2 Margaret Turner MD Work Phone: [facility] 10-18-2023 14:24-040 Body weight 91.81 kg Margaret Turner MD Work Phone: [facility] 10-18-2023 14:24-0400 Diastolic blood pressure 80 mm[Hg] Margaret Turner MD Work Phone: [facility] 10-18-2023 14:24-0400 Systolic blood pressure 110 mm[Hg] Margaret Turner MD Work Phone: [facility] 09-26-2023 15:30-0400 Body weight 92.99 kg NA Geller PA-C Work Phone: [facility] 09-26-2023 15:30-0400 Diastolic blood pressure 84 mm[Hg] NA Geller PA-C Work Phone: [facility] 09-26-2023 15:30-0400 Heart rate 82 /min NA Geller PA-C Work Phone: [facility] 09-26-2023 15:30-0400 Respiratory rate 16 /min NA Geller PA-C Work Phone: [facility] 09-26-2023 15:30-0400 SaO2% (BldA) [Mass fraction] 98 % NA Geller PA-C Work Phone: [facility] 09-26-2023 15:30-0400 Systolic blood pressure 122 mm[Hg] NA Geller PA-C Work Phone: [facility] 09-06-2023 10:53-0400 Body temperature 97.9 [degF] Ferdinand Reynaga APRN.HYDRAULIC MINER Work Phone: [facility] 09-06-2023 10:53-0400 Body weight 91.7 kg Ferdinand Reynaga SPINNER CONTINUOUS.HYDRAULIC MINER Work Phone: [facility] 09-06-2023 10:53-0400 Diastolic blood pressure 82 mm[Hg] Ferdinand Reynaga SPINNER CONTINUOUS.HYDRAULIC MINER Work Phone: [facility] 09-06-2023 10:53-0400 Heart rate 78 /min Ferdinand Reynaga SPINNER CONTINUOUS.HYDRAULIC MINER Work Phone: [facility] 09-06-2023 10:53-0400 Respiratory rate 18 /min Ferdinand Jerezanahy SPINNER CONTINUOUS.HYDRAULIC MINER Work Phone: [facility] 09-06-2023 10:53-0400 SaO2% (BldA) [Mass fraction] 97 % Ferdinand Reynaga SPINNER CONTINUOUS.HYDRAULIC MINER Work Phone: [facility] 09-06-2023 10:53-0400 Systolic blood pressure 128 mm[Hg] Ferdinand Jerezanahy SPINNER CONTINUOUS.HYDRAULIC MINER Work Phone: [facility] 11-07-2022 15:11-0400 Body weight 95.71 kg NA Geller PA-C Work Phone: [facility] 11-07-2022 15:11-0400 Diastolic blood pressure 76 mm[Hg] NA Geller PA-C Work Phone: [facility] 11-07-2022 15:11-0400 Heart rate 93 /min NA Geller PA-C Work Phone: [facility] 11-07-2022 15:11-0400 Respiratory rate 16 /min NA Geller PA-C Work Phone: [facility] 11-07-2022 15:11-0400 SaO2% (BldA) [Mass fraction] 98 % NA Geller PA-C Work Phone: [facility] 11-07-2022 15:11-0400 Systolic blood pressure 118 mm[Hg] NA Geller PA-C Work Phone: [facility] 08-04-2021 09:27-0400 Diastolic blood pressure 88 mm[Hg] Marian Davidsonhof SPINNER CONTINUOUS.HYDRAULIC MINER Work Phone: [facility] 08-04-2021 09:27-0400 Systolic blood pressure 128 mm[Hg] Marian Davidsonhof SPINNER CONTINUOUS.HYDRAULIC MINER Work Phone: [facility] 08-04-2021 08:59-0400 Body weight 97.07 kg Marian Valiente SPINNER CONTINUOUS.HYDRAULIC MINER Work Phone: [facility] 08-04-2021 08:59-0400 Heart rate 79 /min Marian Valiente APRN.HYDRAULIC MINER Work Phone: [facility] 08-04-2021 08:59-0400 SaO2% (BldA) [Mass fraction] 98 % Marian Valiente APRN.HYDRAULIC MINER Work Phone: [facility] Encounters Encounter Date Encounter Type Care Provider Facility Start: 10-18-2023 End: 10-18-2023 Initial preventive medicine new patient 40-64yrs Margaret Turner MD Work Phone: OB/Gynecology Comment on above: Encounter for gyneco logical examination (general) (routine) without abnormal findings (Primary Dx); Screening for cervical cancer; Encounter for screening for human papillomavirus (HPV); Encounter for screening mammogram for breast cancer Start: 10-18-2023 End: 10-18-2023 Patient encounter status Margaret Turner MD Work Phone: [facility] Start: 10-18-2023 End: 10-18-2023 ambulatory hTom FLORINDA GELLER Facility:[facility] Start: 10-18-2023 Encounter for gynecological examination (general) (routine) without abnormal findings MARGARET TURNER [facility] Start: 09-26-2023 End: 09-26-2023 ambulatory Thom GELLER Facility:[facility] Start: 09-26-2023 End: 09-26-2023 Patient encounter procedure Thom Geller PA-C Work Phone: [facility] Comment on above: Menstrual-related mo od disorder (Primary Dx); GUI (generalized anxiety disorder); Encounter for screening mammogram for malignant neoplasm of breast; URI, acute Start: 09-06-2023 End: 09-06-2023 ambulatory Thom STANLEYFLORINDA GELLER Facility:[facility] Start: 09-06-2023 End: 09-06-2023 Office outpatient visit 15 minutes Ferdinand Reynaga APRN.HYDRAULIC MINER Work Phone: [facility] Comment on above: Viral illness (Prima ry Dx) Start: 05-03-2023 End: 05-03-2023 ambulatory Thom GELLER Facility:[facility] Start: 01-10-2023 Telephone encounter Thom Geller VANESSA-C Work Phone: [facility] Start: 01-10-2023 End: 01-10-2023 ambulatory Thom GELLER Facility:[facility] Start: 01-10-2023 End: 01-10-2023 Subsequent hospital visit by physician Us [facility] 1 Work Phone: Radiology Comment on above: No Show Start: 01-09-2023 Telephone encounter Thom Geller VANESSA-C Work Phone: [facility] [place] Comment on above: Results Start: 01-08-2023 Documentation procedure Mammog duglas Coordinator [facility] Start: 01-08-2023 Letter encounter Mammography Coordinator [facility] Department Start: 01-06-2023 End: 01-06-2023 ambulatory Thom GELLER Facility:[facility] Start: 01-06-2023 End: 01-06-2023 Subsequent hospital visit by physician Screen Mammo [facility] Comment on above: Encounter for screen ing mammogram for malignant neoplasm of breast [Z12.31] Start: 11-17-2022 Telephone encounter Thom Geller VANESSA-C Work Phone: [facility] [place] Comment on above: Appointment Start: 11-09-2022 ambulatory Thom vazquez VANESSA-C Work Phone: [facility] [place] Start: 11-07-2022 End: 11-07-2022 Patient encounter procedure Thom Geller VANESSA-C Work Phone: [facility] [place] Comment on above: Episodic weakness (P rimary Dx); Fatigue, unspecified type; Dense breast tissue; Encounter for screening mammogram for malignant neoplasm of breast; Wellness examination; Special screening examination for viral disease; Encounter for immunization Start: 11-07-2022 End: 11-07-2022 Patient encounter status Thom Geller VANESSA-C Work Phone: [facility] Work Phone: Start: 11-07-2022 End: 11-07-2022 ambulatory Thom GELLER Facility:[facility] Start: 11-07-2022 Encounter for genera l adult medical examination without abnormal findings Thom GELLER [facility] Start: 02-16-2022 ambulatory Thom vazquez PA-C Work Phone: [facility] [place] Start: 08-23-2021 End: 08-23-2021 Patient encounter procedure [facility] Start: 08-04-2021 End: 08-04-2021 Patient encounter procedure Marian Valiente SPINNER CONTINUOUS.HYDRAULIC MINER Work Phone: [facility] [place] Comment on above: Elevated BP without diagnosis of hypertension (Primary Dx); Anxiety with depression Start: 07-22-2021 End: 07-22-2021 Patient encounter procedure [facility], Specimen Procedures Date Procedure Procedure Detail Performing Clinician Start: 01-10-2023 Digital breast tomosynthesis unilateral Thom Geller PA-C Work Phone: Start: 01-06-2023 Screening digital br east tomosynthesis bi Thom Geller PA-C Work Phone: Start: 08-23-2021 Screening mammography Start: 02-23-2021 Adult depression scr eening assessment Marian Valiente SPINNER CONTINUOUS.HYDRAULIC MINER Work Phone: Start: 03-23-2020 Mammography Marian yanes SPINNER CONTINUOUS.HYDRAULIC MINER Work Phone: Plan of Treatment Date Care Activity Detail Author Start: 07-22-2026 HPV TESTING HPV TESTING [facility] Start: 07-22-2026 Screening for malign ant neoplasm of cervix HPV Testing [facility] Start: 07-22-2024 PAP TESTING PAP TESTING [facility] Start: 07-22-2024 Screening for malign ant neoplasm of cervix [facility] Start: 04-01-2024 End: 04-01-2024 Patient encounter procedure 04/01/2024 3:20 PM EST Office Visit [facility] [address] [place] [address] Thom Geller PA-C [address] [place] [address] 6 month follow up [facility] Comment on above: 6 month follow up Start: 01-08-2024 End: 01-08-2024 Patient encounter procedure 01/08/2024 2:50 PM EDT Appointment Mammogram [address] [place] [address] PHILLIP SCREENING [facility] Mammogram Comment on above: PHILLIP SCREENING [facility] Start: 01-07-2024 End: 10-25-2024 DBT Breast - bilateral screening PHILLIP SCREENING [facility] Radiology Routine Encounter for screening mammogram for malignant neoplasm of breast Expected: 01/07/2024, Expires: 10/25/2024 [facility] Work Phone: Comment on above: Expected: 01/07/2024 , Expires: 10/25/2024 Start: 01-07-2024 Mammography Mammogram Screening [facility] Start: 01-07-2024 Screening for malign ant neoplasm of breast Mammogram Screening [facility] Start: 12-10-2023 Influenza vaccination [facility] Start: 11-08-2023 HEPATITIS B (1 of 3 - 3-dose series) HEPATITIS B (1 of 3 - 3-dose series) [facility] Comment on above: Postponed from 01/17 (Declined at this time) Start: 11-08-2023 Hepatitis B Vaccine (1 of 3 - 19+ 3-dose series) Hepatitis B Vaccine (1 of 3 - 19+ 3-dose series) [facility] Comment on above: Postponed from 01/17 (Declined at this time) Start: 11-08-2023 Hepatitis B Vaccine (1 of 3 - 3-dose series) Hepatitis B Vaccine (1 of 3 - 3-dose series) [facility] Comment on above: Postponed from 01/17 (Declined at this time) Start: 11-08-2023 PNEUMOCOCCAL (1 - PCV) PNEUMOCOCCAL (1 - PCV) [facility] Comment on above: Postponed from 01/17 (Declined at this time) Start: 11-08-2023 Pneumococcal vaccination [facility] Comment on above: Postponed from 01/17 (Declined at this time) Start: 11-08-2023 Urine microalbumin profile [facility] Comment on above: Postponed from 06/18 (Declined at this time) Start: 10-18-2023 End: 10-18-2023 Patient encounter procedure 10/18/2023 2:20 PM EDT Office Visit OB/Gynecology [address] [place] [address] Margaret Turner MD [address] [place] [address] annual new pt OB/Gynecology Comment on above: annual new pt Start: 09-26-2023 End: 09-26-2023 Patient encounter procedure 09/26/2023 3:20 PM EDT Office Visit [facility] [address] [place] [address] Thom Geller PA-C [address] [place] [address] ec follow up, discuss meds [facility] Medicine [place] Comment on above: ec follow up, deonte s meds Start: 04-10-2023 Behavioral Health Screening Behavioral Health Screening [facility] Start: 02-07-2023 End: 04-09-2023 Hemoglobin A1c in Blood HGB A1C Lab Routine Episodic weakness Fatigue, unspecified type Expected: 02/07/2023, Expires: 04/09/2023 [facility] Work Phone: Comment on above: Expected: 02/07/2023 , Expires: 04/09/2023 Start: 12-09-2022 Influenza vaccination [facility] Start: 11-07-2022 End: 01-07-2023 CBC W Auto Differential panel - Blood CBC + DIFF Lab Routine Episodic weakness Fatigue, unspecified type Expected: 11/07/2022, Expires: 01/07/2023 [facility] Work Phone: Comment on above: Expected: 11/07/2022 , Expires: 01/07/2023 Start: 11-07-2022 End: 01-07-2023 Comprehensive metabolic 2000 panel - Serum or Plasma COMP METABOLIC PANEL Lab Routine Episodic weakness Fatigue, unspecified type Expected: 11/07/2022, Expires: 01/07/2023 [facility] Work Phone: Comment on above: Expected: 11/07/2022 , Expires: 01/07/2023 Start: 11-07-2022 End: 01-07-2023 Hepatitis C virus Ab [Presence] in Serum HEPATITIS C ANTIBODY IA WITH CONFIRMATION Lab Routine Special screening examination for viral disease Expected: 11/07/2022, Expires: 01/07/2023 [facility] Work Phone: Comment on above: Expected: 11/07/2022 , Expires: 01/07/2023 Start: 11-07-2022 End: 01-07-2023 Thyrotropin [Units/volume] in Serum or Plasma TSH BLD Lab Routine Episodic weakness Fatigue, unspecified type Expected: 11/07/2022, Expires: 01/07/2023 [facility] Work Phone: Comment on above: Expected: 11/07/2022 , Expires: 01/07/2023 Start: 02-23-2022 Adult depression screening assessment DEPRESSION SCREENING [facility] Start: 12-09-2021 Influenza vaccination [facility] Start: 11-24-2021 HEPATITIS C SCREENING HEPATITIS C [facility] Comment on above: Postponed from 01/17 (Declined at this time) Start: 11-24-2021 ONE PNEUMOVAX PRIOR TO AGE 65 ONE PNEUMOVAX PRIOR TO AGE 65 [facility] Comment on above: Postponed from 01/17 (Declined at this time) Start: 11-24-2021 Urine microalbumin profile DTAP,TDAP,TD (6 - Tdap) [facility] Comment on above: Postponed from 06/19 (Declined at this time) Start: 11-23-2021 COVID-19 VACCINE (1) COVID-19 VACCIN E (1) [facility] Comment on above: Postponed from 01/17 (Declined at this time) Start: 04-10-2021 DEPRESSION ASSESSMENT DEPRESSION ASS ESSMENT [facility] Start: 03-23-2021 Mammography MAMMOGRAM [facility] Start: 01-17-1998 HEPATITIS C SCREENING HEPATITIS C [facility] Start: 01-17-1998 Hepatitis C screening Hepatitis C [facility] Start: 06-19-1996 Urine microalbumin profile DTAP,TDAP,TD (6 - Tdap) [facility] Start: 01-17-1986 PNEUMOCOCCAL (1 - PCV) PNEUMOCOCCAL (1 - PCV) [facility] Start: 1980 COVID-19 VACCINE (#1) COVID-19 VACCI NE (#1) [facility] Start: 1980 HEPATITIS B (1 of 3 - 3-dose series) HEPATITIS B (1 of 3 - 3-dose series) [facility] End: 02-08-2024 PHILLIP DIAGNOSTIC RIGHT PHILLIP DIAGNOSTIC RIGHT Radiology Routine Inconclusive mammogram 1 Occurrences starting 01/09/2023 until 02/08/2024 [facility] Work Phone: Comment on above: 1 Occurrences starti ng 01/09/2023 until 02/08/2024 End: 02-09-2024 PHILLIP DIAGNOSTIC RIGHT PHILLIP DIAGNOSTIC RIGHT Radiology Routine Inconclusive mammogram 1 Occurrences starting 01/10/2023 until 02/09/2024 [facility] Work Phone: Comment on above: 1 Occurrences starti ng 01/10/2023 until 02/09/2024 End: 12-09-2023 PHILLIP SCREENING PHILLIP SCREENING Radiology Routine Encounter for screening mammogram for breast cancer 1 Occurrences starting 11/09/2022 until 12/09/2023 [facility] Work Phone: Comment on above: 1 Occurrences starti ng 11/09/2022 until 12/09/2023 End: 12-17-2023 PHILLIP SCREENING W GARRETT PHILLIP SCREENING [facility] Radiology Routine Encounter for screening mammogram for malignant neoplasm of breast Dense breasts 1 Occurrences starting 11/17/2022 until 12/17/2023 [facility] Work Phone: Comment on above: 1 Occurrences starti ng 11/17/2022 until 12/17/2023 PAP TEST PAP TEST Lab Milagro benson Encounter for gynecological examination (general) (routine) without abnormal findings Screening for cervical cancer Encounter for screening for human papillomavirus (HPV) 10/18/2023 2:58 PM EDT [facility] Work Phone: End: 03-18-2023 Screening mammography bi 2-view breast inc cad PHILLIP SCREENING Radiology Routine Encounter for screening mammogram for breast cancer 1 Occurrences starting 02/16/2022 until 03/18/2023 [facility] Work Phone: Comment on above: 1 Occurrences starti ng 02/16/2022 until 03/18/2023 End: 12-07-2023 US BREAST LTD LEFT US BREAST LTD LEFT Radiology Routine Dense breast tissue Encounter for screening mammogram for malignant neoplasm of breast 1 Occurrences starting 11/07/2022 until 12/07/2023 [facility] Work Phone: Comment on above: 1 Occurrences starti ng 11/07/2022 until 12/07/2023 End: 12-07-2023 US BREAST LTD RIGHT US BREAST LTD RIGHT Radiology Routine Dense breast tissue Encounter for screening mammogram for malignant neoplasm of breast 1 Occurrences starting 11/07/2022 until 12/07/2023 [facility] Work Phone: Comment on above: 1 Occurrences starti ng 11/07/2022 until 12/07/2023 End: 02-08-2024 US BREAST LTD RIGHT US BREAST LTD RIGHT Radiology Routine Inconclusive mammogram 1 Occurrences starting 01/09/2023 until 02/08/2024 [facility] Work Phone: Comment on above: 1 Occurrences starti ng 01/09/2023 until 02/08/2024 End: 02-09-2024 US BREAST LTD RIGHT US BREAST LTD RIGHT Radiology Routine Inconclusive mammogram 1 Occurrences starting 01/10/2023 until 02/09/2024 [facility] Work Phone: Comment on above: 1 Occurrences starti ng 01/10/2023 until 02/09/2024 [facility] Immunizations Immunization Date Immunization Notes Care Provider [facility] 06-18-1996 diphtheria and tetan us toxoids, adsorbed for pediatric use Marian Valiente APRN.HYDRAULIC MINER Work Phone: [facility] 06-18-1996 tetanus and diphther ia toxoids, adsorbed, preservative free, for adult use (2 Lf of tetanus toxoid and 2 Lf of diphtheria toxoid) Marian Valiente APRN.CNP Work Phone: [facility] 11-20-1992 measles, mumps and rubella virus vaccine Marian Tannhof SPINNER CONTINUOUS.HYDRAULIC MINER Work Phone: [facility] 10-25-1985 diphtheria, tetanus toxoids and pertussis vaccine Marian Tannhof SPINNER CONTINUOUS.HYDRAULIC MINER Work Phone: [facility] 10-25-1985 haemophilus influenz ae type b vaccine, HbOC conjugate Marian Tannhof SPINNER CONTINUOUS.HYDRAULIC MINER Work Phone: [facility] 10-25-1985 poliovirus vaccine, inactivated Marian Tannhof SPINNER CONTINUOUS.HYDRAULIC MINER Work Phone: [facility] 08-12-1981 diphtheria, tetanus toxoids and pertussis vaccine Marian Tannhof SPINNER CONTINUOUS.HYDRAULIC MINER Work Phone: [facility] 08-12-1981 measles, mumps and rubella virus vaccine Marian Tannhof SPINNER CONTINUOUS.HYDRAULIC MINER Work Phone: [facility] 06-12-1981 poliovirus vaccine, inactivated Marian Tannhof SPINNER CONTINUOUS.HYDRAULIC MINER Work Phone: [facility] 02-11-1981 diphtheria, tetanus toxoids and pertussis vaccine Marian Tannhof SPINNER CONTINUOUS.HYDRAULIC MINER Work Phone: [facility] 1980 diphtheria, tetanus toxoids and pertussis vaccine Marian Tannhof SPINNER CONTINUOUS.HYDRAULIC MINER Work Phone: [facility] 1980 poliovirus vaccine, inactivated Marian Tannhof SPINNER CONTINUOUS.HYDRAULIC MINER Work Phone: [facility] 1980 diphtheria, tetanus toxoids and pertussis vaccine Marian Tannhof SPINNER CONTINUOUS.HYDRAULIC MINER Work Phone: [facility] 1980 poliovirus vaccine, inactivated Marian Tannhof SPINNER CONTINUOUS.[facility] Work Phone: [facility] Payers Date Payer Category Payer Unknown LENNY SILVA KURTISKatie PPO [id number] 2019-Present [phone] [address] [place] [address] O [id number] 2019 Unknown LENNY MAZARIEGOS PPO [id number] 2019-Present [phone] [facility] [id number] [place] [address] PPO [id number] 2019 Unknown [id number] Self-pay SELF PAY INSURANCE [id number] Social History Date Type Detail Facility Start: 01-14-2019 End: 09-18-2022 Tobacco smoking status NHIS Smokes tobacco daily [facility] Work Phone: History of tobacco use Cigarette Smoker C [facility] Work Phone: Start: 01-14-2019 End: 09-26-2023 Cigarettes smoked current (pack per day) - Reported 1 [facility] Work Phone: Start: 01-14-2019 End: 09-18-2022 Tobacco use and exposure Smokeless tobacco non-user [facility] Work Phone: Start: 08-04-2021 End: 10-18-2023 Alcohol intake Current drinker of alcohol (finding) [facility] Start: 11-23-2020 History SDOH Alcohol Comment 4 beers/ night [facility] Start: 1980 Sex Assigned At Not on file [facility] Start: 07-14-2015 Tobacco smoking stat us [facility] Unknown if ever smoked [facility] Work Phone: Start: 1980 Sex Assigned At Female [facility] Work Phone: Start: 11-07-2022 End: 09-26-2023 Tobacco use panel [facility] Work Phone: Adult Depression Screening Assessment 0 [facility] Work Phone: Clinical Notes 07-22-2021 to 10-18-2023 Margaret Turner MD - 10/18/2023 2:17 PM EDTPatient InstructionsThom Geller PA-C - 09/26/2023 3:33 PM Ferdinand Diaz APRN.DEBO - 09/06/2023 10:58 AM EDTPatient Instructions Note Date & Type Note Facility 10-18-2023 Note HNO ID: [id number] Author: MARGARET TURNER MD Service: ? Author Type: Physician Type: Progress Notes Filed: 10/18/2023 14:52 Note Text: Vice President Business Development offered: Patient declines. Michelle is a 43 year old who presents for an annual gynecologic exam without complaints. Recently prescribed paxil for premenstrual rage. Has not picked it up yet. Menses: cycles every 23-33 days and 2-3 days of flow. Contraception: tubal sterilization HPV vaccine: No Last Pap: normal HPV: negative History of abnormal pap: No Last mammogram: 2022normal Sexually active: Yes OB History T0 L0 SAB0 IAB0 Ectopic0 Multiple0 Live Births0 Belly Packer History LMP: 10/11/2023, Having periods Age at Menarche: Age at First : Age at Menopause: Belly Packer History Comments: Sexual Activity: Yes; Male Contraception: Tubal Ligation PAST MEDICAL HISTORY Diagnosis Date NEGATIVE MEDICAL HISTORY PAST SURGICAL HISTORY Procedure Laterality Date NONE FAMILY HISTORY Problem Relation Age of Onset Thyroid Mother other (prediabetes) Mother Cancer Father throat Bipolar disorder Brother Schizophrenia Brother Learning disabilities Brother No Known Problems Brother No Known Problems Brother No Known Problems Brother No Known Problems Brother No Known Problems Brother Thyroid Maternal Grandmother Heart Maternal Grandfather Lung Cancer Paternal Grandmother Colon Cancer Paternal Grandfather Diabetes Paternal Aunt Diabetes Paternal Uncle Diabetes Other SOCIAL HISTORY Social History Tobacco Use Smoking status: Every Day Packs/day: 1 Types: Cigarettes Smokeless tobacco: Never Vaping Use Vaping Use: Former Substance Use Topics Alcohol use: Yes Comment: 4 beers/ night Drug use: No REVIEW OF SYSTEMS Abdomen: No abdominal pain, nausea, vomiting, diarrhea, or constipation. No bloating, early satiety, indigestion, or increased flatulence. Bladder: No dysuria, gross hematuria, urinary frequency, urinary urgency, or incontinence. Breast: No breast lumps, nipple d/c, overlying skin changes, redness or skin retraction. Allergies and current medication updated:Yes EXAM: BP 110/80 Ht 5' 3.5 (1.61m) Wt 202 lb 6.4 oz (91.8kg) LMP 10/11/2023 BMI 35.29 kg/(m2). GENERAL: pleasant, female in no apparent distress HEENT: Normocephalic, atraumatic, mucus membranes moist, and no lesions NECK: Supple, full range of motion, no adenopathy, and thyroid normal DERMATOLOGY: Normal, without lesions, non-icteric, and non-hirsute BREAST: soft, non-tender, symmetric, no dominant mass, normal nipple-areolar complex, no lymphadenopathy, and no nipple discharge CHEST: Normal inspiratory effort ABDOMEN: soft, non-tender, and no masses PELVIC: external genitalia normal, normal Bartholin's glands, urethra, [place]'s glands, no vulvar lesions, no cervical lesions, good vaginal support, physiologic discharge present, normal appearing perineal body and perianal region BIMANUAL: uterus normal size, shape and consistency, no adnexal masses, and non-tender RECTOVAGINAL: deferred. NEURO: alert and oriented x3,exam grossly non-focal EXTREMITIES: normal ASSESSMENT/PLAN: 1) Health maintenance: Pap done with HPV. Mammogram up to date . 2) Contraception: tubal sterilization. Contraceptive options reviewed and information provided. 3) STD screening: Declined STD check. 4) Follow up one year or sooner as needed Margaret Turner MD [facility] 10-18-2023 History of Presen t illness Narrative Vice President Business Development offered: Patient declines. Michelle is a 43 year old who presents for an annual gynecologic exam without complaints. Recently prescribed paxil for premenstrual rage. Has not picked it up yet. Menses: cycles every 23-33 days and 2-3 days of flow. Contraception: tubal sterilization HPV vaccine: No Last Pap: normal HPV: negative History of abnormal pap: No Last mammogram: 2022normal Sexually active: Yes OB History T0 L0 SAB0 IAB0 Ectopic0 Multiple0 Live Births0 Belly Packer History LMP: 10/11/2023, Having periods Age at Menarche: Age at First : Age at Menopause: Belly Packer History Comments: Sexual Activity: Yes; Male Contraception: Tubal Ligation PAST MEDICAL HISTORY Diagnosis Date NEGATIVE MEDICAL HISTORY PAST SURGICAL HISTORY Procedure Laterality Date NONE FAMILY HISTORY Problem Relation Age of Onset Thyroid Mother other (prediabetes) Mother Cancer Father throat Bipolar disorder Brother Schizophrenia Brother Learning disabilities Brother No Known Problems Brother No Known Problems Brother No Known Problems Brother No Known Problems Brother No Known Problems Brother Thyroid Maternal Grandmother Heart Maternal Grandfather Lung Cancer Paternal Grandmother Colon Cancer Paternal Grandfather Diabetes Paternal Aunt Diabetes Paternal Uncle Diabetes Other SOCIAL HISTORY Social History Tobacco Use Smoking status: Every Day Packs/day: 1 Types: Cigarettes Smokeless tobacco: Never Vaping Use Vaping Use: Former Substance Use Topics Alcohol use: Yes Comment: 4 beers/ night Drug use: No REVIEW OF SYSTEMS Abdomen: No abdominal pain, nausea, vomiting, diarrhea, or constipation. No bloating, early satiety, indigestion, or increased flatulence. Bladder: No dysuria, gross hematuria, urinary frequency, urinary urgency, or incontinence. Breast: No breast lumps, nipple d/c, overlying skin changes, redness or skin retraction. Allergies and current medication updated:Yes EXAM: BP 110/80 Ht 5' 3.5 (1.61m) Wt 202 lb 6.4 oz (91.8kg) LMP 10/11/2023 BMI 35.29 kg/(m^2). GENERAL: pleasant, female in no apparent distress HEENT: Normocephalic, atraumatic, mucus membranes moist, and no lesions NECK: Supple, full range of motion, no adenopathy, and thyroid normal DERMATOLOGY: Normal, without lesions, non-icteric, and non-hirsute BREAST: soft, non-tender, symmetric, no dominant mass, normal nipple-areolar complex, no lymphadenopathy, and no nipple discharge CHEST: Normal inspiratory effort ABDOMEN: soft, non-tender, and no masses PELVIC: external genitalia normal, normal Bartholin's glands, urethra, [place]'s glands, no vulvar lesions, no cervical lesions, good vaginal support, physiologic discharge present, normal appearing perineal body and perianal region BIMANUAL: uterus normal size, shape and consistency, no adnexal masses, and non-tender RECTOVAGINAL: deferred. NEURO: alert and oriented x3,exam grossly non-focal EXTREMITIES: normal ASSESSMENT/PLAN: 1) Health maintenance: Pap done with HPV. Mammogram up to date . 2) Contraception: tubal sterilization. Contraceptive options reviewed and information provided. 3) STD screening: Declined STD check. 4) Follow up one year or sooner as needed Margaret Turner MD documented in this encounter [facility] 09-26-2023 Instructions Thom Geller PA-C - 09/26/2023 4:02 PM EDT Mychart progress in 4 weeks unless complications. Paroxetine: Patient drug information Access Right Relevance Online for additional drug information, tools, and databases. Copyright 3319-6617 [employer]. All rights reserved. (For additional information see Paroxetine: Drug information and see Paroxetine: Pediatric drug information) Brand Names: [place]; Paxil; Paxil CR; Pexeva Brand Names: Kacey ACT PARoxetine [DSC]; AG-Paroxetine; APO-PARoxetine; Auro-PARoxetine; BIO-PARoxetine; DOM-PARoxetine; JAMP-PARoxetine; M-Paroxetine; Mar-PARoxetine; MINT-Paroxetine; MYLAN-PARoxetine [DSC]; NRA-Paroxetine; NU-PARoxetine [DSC]; PARoxetine-10; PARoxetine-20; PARoxetine-30; Paxil; Paxil CR; PMS-PARoxetine; Priva-PARoxetine; MAYELIN-PARoxetine; SANDOZ PARoxetine; TARO-PARoxetine; TEVA-PARoxetine Warning Drugs like this one have raised the chance of suicidal thoughts or actions in children and young adults. The risk may be greater in people who have had these thoughts or actions in the past. All people who take this drug need to be watched closely. Call the doctor right away if signs like low mood (depression), nervousness, restlessness, grouchiness, panic attacks, or changes in mood or actions are new or worse. Call the doctor right away if any thoughts or actions of suicide occur. This drug is not approved for use in children. Talk with the doctor. What is this drug used for? It is used to treat low mood (depression). It is used to treat obsessive-compulsive problems. It is used to treat panic attacks. It is used to treat anxiety. It is used to treat post-traumatic stress. It is used to treat mood problems caused by monthly periods. It is used to treat hot flashes caused by menopause. It may be given to you for other reasons. Talk with the doctor. What do I need to tell my doctor BEFORE I take this drug? For all uses of this drug: If you are allergic to this drug; any part of this drug; or any other drugs, foods, or substances. Tell your doctor about the allergy and what signs you had. If you have narrow-angle glaucoma. If you are taking any of these drugs: Linezolid, methylene blue, pimozide, or thioridazine. If you have taken certain drugs for depression or Parkinson's disease in the last 14 days. This includes isocarboxazid, phenelzine, tranylcypromine, selegiline, or rasagiline. Very high blood pressure may happen. For treating hot flashes caused by menopause: If you are or may be . Do not take this drug if you are . This is not a list of all drugs or health problems that interact with this drug. Tell your doctor and pharmacist about all of your drugs (prescription or OTC, natural products, vitamins) and health problems. You must check to make sure that it is safe for you to take this drug with all of your drugs and health problems. Do not start, stop, or change the dose of any drug without checking with your doctor. What are some things I need to know or do while I take this drug? Tell all of your health care providers that you take this drug. This includes your doctors, nurses, pharmacists, and dentists. Avoid driving and doing other tasks or actions that call for you to be alert until you see how this drug affects you. Do not stop taking this drug all of a sudden without calling your doctor. You may have a greater risk of side effects. If you need to stop this drug, you will want to slowly stop it as ordered by your doctor. Avoid drinking alcohol while taking this drug. Talk with your doctor before you use marijuana, other forms of cannabis, or prescription or OTC drugs that may slow your actions. It may take several weeks to see the full effects. This drug may raise the chance of a broken bone. Talk with the doctor. This drug may raise the chance of bleeding. Sometimes, bleeding can be life-threatening. Talk with the doctor. Some people may have a higher chance of eye problems with this drug. Your doctor may want you to have an eye exam to see if you have a higher chance of these eye problems. Call your doctor right away if you have eye pain, change in eyesight, or swelling or redness in or around the eye. This drug can cause low sodium levels. Very low sodium levels can be life-threatening, leading to seizures, passing out, trouble breathing, or . If you are 65 or older, use this drug with care. You could have more side effects. This drug may affect growth in children and teens in some cases. They may need regular growth checks. Talk with the doctor. This drug may affect sperm in men. This may affect being able to father a child. Talk with the doctor. This drug may cause harm to the unborn baby if you take it while you are . If you are or you get while taking this drug, call your doctor right away. Tell your doctor if you are breast-feeding. You will need to talk about any risks to your baby. What are some side effects that I need to call my doctor about right away? WARNING/CAUTION: Even though it may be rare, some people may have very bad and sometimes deadly side effects when taking a drug. Tell your doctor or get medical help right away if you have any of the following signs or symptoms that may be related to a very bad side effect: Signs of an allergic reaction, like rash; hives; itching; red, swollen, blistered, or peeling skin with or without fever; wheezing; tightness in the chest or throat; trouble breathing, swallowing, or talking; unusual hoarseness; or swelling of the mouth, face, lips, tongue, or throat. Signs of low sodium levels like headache, trouble focusing, memory problems, feeling confused, weakness, seizures, or change in balance. Signs of bleeding like throwing up or coughing up blood; vomit that looks like coffee grounds; blood in the urine; black, red, or tarry stools; bleeding from the gums; abnormal vaginal bleeding; bruises without a cause or that get bigger; or bleeding you cannot stop. Very bad dizziness or passing out. Bone pain. Seizures. A big weight loss. A burning, numbness, or tingling feeling that is not normal. Sex problems like lowered interest in sex or ejaculation problems. Erection that lasts more than 4 hours. A severe and sometimes deadly problem called serotonin syndrome may happen. The risk may be greater if you also take certain other drugs. Call your doctor right away if you have agitation; change in balance; confusion; hallucinations; fever; fast or abnormal heartbeat; flushing; muscle twitching or stiffness; seizures; shivering or shaking; sweating a lot; severe diarrhea, upset stomach, or throwing up; or very bad headache. What are some other side effects of this drug? All drugs may cause side effects. However, many people have no side effects or only have minor side effects. Call your doctor or get medical help if any of these side effects or any other side effects bother you or do not go away: Feeling dizzy, sleepy, tired, or weak. Feeling nervous and excitable. Headache. Constipation, diarrhea, stomach pain, upset stomach, throwing up, or feeling less hungry. Gas. Dry mouth. Trouble sleeping. Shakiness. Yawning. Back pain. These are not all of the side effects that may occur. If you have questions about side effects, call your doctor. Call your doctor for medical advice about side effects. You may report side effects to your national health agency. How is this drug best taken? Use this drug as ordered by your doctor. Read all information given to you. Follow all instructions closely. All products: Take with or without food. Keep taking this drug as you have been told by your doctor or other health care provider, even if you feel well. Liquid (suspension): Shake well before use. Measure liquid doses carefully. Use the measuring device that comes with this drug. If there is none, ask the pharmacist for a device to measure this drug. Take this drug in the morning unless your doctor tells you otherwise. All tablet products: Swallow whole. Do not chew, break, or crush. Take this drug in the morning unless your doctor tells you otherwise. Capsules: Take this drug at bedtime. What do I do if I miss a dose? Take a missed dose as soon as you think about it. If it is close to the time for your next dose, skip the missed dose and go back to your normal time. Do not take 2 doses at the same time or extra doses. How do I store and/or throw out this drug? All products: Store at room temperature in a dry place. Do not store in a bathroom. Keep all drugs in a safe place. Keep all drugs out of the reach of children and pets. Throw away unused or drugs. Do not flush down a toilet or pour down a drain unless you are told to do so. Check with your pharmacist if you have questions about the best way to throw out drugs. There may be drug take-back programs in your area. Capsules: Protect from light. General drug facts If your symptoms or health problems do not get better or if they become worse, call your doctor. Do not share your drugs with others and do not take anyone else's drugs. Some drugs may have another patient information leaflet. If you have any questions about this drug, please talk with your doctor, nurse, pharmacist, or other health care provider. If you think there has been an overdose, call your poison control center or get medical care right away. Be ready to tell or show what was taken, how much, and when it happened. Use of UpToDate is subject to the Subscription and License Agreement. Topic 77277 Version 176.0 documented in this encounter [facility] 09-26-2023 Note HNO ID: [id number] Author: Thom GELLER PA-C Service: ? Author Type: Physician Vice President & General Manager [employer] Type: Progress Notes Filed: 09/27/2023 10:59 Note Text: 43 year old female with c/o f/[facility] URI From record: Cough, chest congestion, runny nose and STORY x 1 week... malaise, sinus pain, sore throat, myalgias Rx fo benzonatate, fluticasone NS Afebrile Feeling down, anxious over last month. Struggling to go to work Brother , kids, addiction, brother getting out of assisted New job but $5 Now working [employer], not making much money. 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 Bleeding is heavy, 5 days, heavy first three day, quarter sized clots. Cycle q28 regularly, suddenly went 35 days HISTORIES FAMILY HISTORY Problem Relation Age of Onset Cancer Father throat Diabetes Paternal Aunt Diabetes Paternal Uncle Thyroid Mother other (prediabetes) Mother Thyroid Maternal Grandmother Diabetes Other PAST MEDICAL HISTORY Diagnosis Date NEGATIVE MEDICAL HISTORY PAST SURGICAL HISTORY Procedure Laterality Date NONE Social History Tobacco Use Smoking status: Every Day Packs/day: 1 Types: Cigarettes Smokeless tobacco: Never Substance Use Topics Alcohol use: Yes Comment: 4 beers/ night Drug use: No ACTIVE PROBLEM LIST Adjustment Reaction With Anxiety and Depression Tobacco Dependence Pms (Premenstrual Syndrome) Fh: Type 2 Diabetes Current Outpatient Medications Medication Sig Dispense Refill fluticasone (FLONASE ALLERGY RELIEF) 50 mcg/actuation nasal spray Use 1 Bowler in each nostril once daily. 11.1 mL 0 No current facility-administered medications for this visit. Hepatitis C Screening Never done Behavioral Health Screening Never done Mammogram Screening due on 01/07/2024 BP 122/84 Pulse 82 Resp 16 Wt 93 kg (205 lb) LMP 12/18/2018 SpO2 98% Pleasant obese adult woman in no acute distress. Alert and oriented all spheres. Normal affect and cognition. Speech normal. No deficits to learning or comprehension. Skin warm, dry, pink to lips and nailbeds. Normal turgor. Respirations regular and unlabored. HEENT: NCAT. No scleral icterus or conjunctival injection. TM's clear. Nose and oropharynx free from injection or lesion. Oral membranes moist and pink. No cervical lymph nodes. Thyroid non-tender, no masses, or enlargement. Carotids pulses 2+/4+ without bruits. No JVD with HOB at 30 degrees. Extrem: no clubbing or cyanosis. Edema: none. Extremities are warm and pink with prompt capillary refill. ASSESSMENT/PLAN: 1. Menstrual-related mood disorder - ICD9: 625.4, ICD10: F06.30 (primary diagnosis) Trial paroxetine for mood and early menopausal sx - PAROXETINE 10 MG TABLET Educated on new medication administration, warnings and cautions, common side effects, anticipated duration or therapy, and instructions on cessation management to avoid risks if stops medication. Patient choice was discussed in shared decision making. 2. GUI (generalized anxiety disorder) - ICD9: 300.02, ICD10: F41.1 - PAROXETINE 10 MG TABLET 3. Encounter for screening mammogram for malignant neoplasm of breast - ICD9: V76.12, ICD10: Z12.31 - Complete pelvic and breast exam with [facility] - Encouraged monthly BSE - Follow up for annual exam in one year. - PHILLIP SCREENING W GARRETT 4. URI, acute - ICD9: 465.9, ICD10: J06.9 - Discussed viral etiology and rationale for treatment. - Symptomatic treatment with prn analgesia - Supportive care with fluids and rest Behavioral Health Screening PHQ-9 Score: 9 (Mild Depression) GUI-7 Score: 10 (Moderate Anxiety) Recommendation: medication management Some of this note may have been copied and pasted for the purpose of history context and comparison. All questions listed were asked and adjusted for changes in prior data. Thom Geller PA-C [facility] 09-26-2023 History of Presen t illness Narrative 43 year old female with c/o f[facility] URI From record: Cough, chest congestion, runny nose and STORY x 1 week... malaise, sinus pain, sore throat, myalgias Rx fo benzonatate, fluticasone NS Afebrile Feeling down, anxious over last month. Struggling to go to work Brother , kids, addiction, brother getting out of assisted New job but $5 Now working [employer], not making much money. 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 Bleeding is heavy, 5 days, heavy first three day, quarter sized clots. Cycle q28 regularly, suddenly went 35 days HISTORIES FAMILY HISTORY Problem Relation Age of Onset Cancer Father throat Diabetes Paternal Aunt Diabetes Paternal Uncle Thyroid Mother other (prediabetes) Mother Thyroid Maternal Grandmother Diabetes Other PAST MEDICAL HISTORY Diagnosis Date NEGATIVE MEDICAL HISTORY PAST SURGICAL HISTORY Procedure Laterality Date NONE Social History Tobacco Use Smoking status: Every Day Packs/day: 1 Types: Cigarettes Smokeless tobacco: Never Substance Use Topics Alcohol use: Yes Comment: 4 beers/ night Drug use: No ACTIVE PROBLEM LIST Adjustment Reaction With Anxiety and Depression Tobacco Dependence Pms (Premenstrual Syndrome) Fh: Type 2 Diabetes Current Outpatient Medications Medication Sig Dispense Refill fluticasone (FLONASE ALLERGY RELIEF) 50 mcg/actuation nasal spray Use 1 Bowler in each nostril once daily. 11.1 mL 0 No current facility-administered medications for this visit. Hepatitis C Screening Never done Behavioral Health Screening Never done Mammogram Screening due on 01/07/2024 BP 122/84 Pulse 82 Resp 16 Wt 93 kg (205 lb) LMP 12/18/2018 SpO2 98% Pleasant obese adult woman in no acute distress. Alert and oriented all spheres. Normal affect and cognition. Speech normal. No deficits to learning or comprehension. Skin warm, dry, pink to lips and nailbeds. Normal turgor. Respirations regular and unlabored. HEENT: NCAT. No scleral icterus or conjunctival injection. TM's clear. Nose and oropharynx free from injection or lesion. Oral membranes moist and pink. No cervical lymph nodes. Thyroid non-tender, no masses, or enlargement. Carotids pulses 2+/4+ without bruits. No JVD with HOB at 30 degrees. Extrem: no clubbing or cyanosis. Edema: none. Extremities are warm and pink with prompt capillary refill. ASSESSMENT/PLAN: 1. Menstrual-related mood disorder - ICD9: 625.4, ICD10: F06.30 (primary diagnosis) Trial paroxetine for mood and early menopausal sx - PAROXETINE 10 MG TABLET Educated on new medication administration, warnings and cautions, common side effects, anticipated duration or therapy, and instructions on cessation management to avoid risks if stops medication. Patient choice was discussed in shared decision making. 2. GUI (generalized anxiety disorder) - ICD9: 300.02, ICD10: F41.1 - PAROXETINE 10 MG TABLET 3. Encounter for screening mammogram for malignant neoplasm of breast - ICD9: V76.12, ICD10: Z12.31 - Complete pelvic and breast exam with [facility] - Encouraged monthly BSE - Follow up for annual exam in one year. - PHILLIP SCREENING W GARRETT 4. URI, acute - ICD9: 465.9, ICD10: J06.9 - Discussed viral etiology and rationale for treatment. - Symptomatic treatment with prn analgesia - Supportive care with fluids and rest Behavioral Health Screening PHQ-9 Score: 9 (Mild Depression) GUI-7 Score: 10 (Moderate Anxiety) Recommendation: medication management Some of this note may have been copied and pasted for the purpose of history context and comparison. All questions listed were asked and adjusted for changes in prior data. Thom Geller PA-C documented in this encounter [facility] 09-06-2023 Note HNO ID: [id number] Author: FERDINAND REYNAGA APRN.HYDRAULIC MINER Service: ? Author Type: Nurse Practitioner Type: Progress Notes Filed: 09/06/2023 11:27 Note Text: Subjective HPI Nontoxic-appearing female presents to urgent care with chief complaint of upper respiratory tract like infection. Duration of symptoms 1 week. Associated symptoms sore throat, nasal congestion, nasal discharge and nonproductive cough. Patient denies the use of any [id number] medications or home remedies for symptom management. Patient states recent sick contacts with similar signs and symptoms. Patient denies any productive cough, fever, chest pain, shortness of breath, pleuritic pain, rash, abdominal pain, nausea, vomiting or change in bowel or bladder habit. Denies chance of . Is not breast-feeding. .Patient presents with: Cough: Cough, chest congestion, runny nose and STORY x 1 week PAST MEDICAL HISTORY Diagnosis Date NEGATIVE MEDICAL HISTORY PAST SURGICAL HISTORY Procedure Laterality Date NONE ALLERGIES Latex and Seasonal Allergies MEDICATIONS No prescriptions on file. FAMILY HISTORY Problem Relation Age of Onset Cancer Father throat Diabetes Paternal Aunt Diabetes Paternal Uncle Thyroid Mother other (prediabetes) Mother Thyroid Maternal Grandmother Diabetes Other Social History Tobacco Use Smoking status: Every Day Packs/day: 1 Types: Cigarettes Smokeless tobacco: Never Substance Use Topics Alcohol use: Yes Comment: 4 beers/ night Drug use: No BP 128/82 Pulse 78 Temp 36.6 ?C (97.9 ?F) (Tympanic) Resp 18 Wt 91.7 kg (202 lb 2.6 oz) LMP 12/18/2018 SpO2 97% Review of Systems Constitutional: Positive for malaise/fatigue. Negative for chills and fever. HENT: Positive for congestion, sinus pain and sore throat. Negative for ear discharge and ear pain. Eyes: Negative for blurred vision, pain, discharge and redness. Respiratory: Positive for cough. Negative for hemoptysis, sputum production, shortness of breath, wheezing and stridor. Cardiovascular: Negative for chest pain. Gastrointestinal: Negative for abdominal pain, diarrhea, nausea and vomiting. Musculoskeletal: Positive for myalgias. Skin: Negative for itching and rash. Neurological: Negative for dizziness and headaches. Objective Physical Exam Constitutional: General: She is not in acute distress. Appearance: She is not diaphoretic. HENT: Head: Normocephalic. Jaw: No trismus, tenderness, swelling or pain on movement. Right Ear: Tympanic membrane, ear canal and external ear normal. Left Ear: Tympanic membrane, ear canal and external ear normal. Nose: Congestion present. Mouth/Throat: Mouth: Mucous membranes are moist. Pharynx: Oropharynx is clear. Uvula midline. No pharyngeal swelling, oropharyngeal exudate, posterior oropharyngeal erythema or uvula swelling. Eyes: Conjunctiva/sclera: Conjunctivae normal. Pupils: Pupils are equal, round, and reactive to light. Cardiovascular: Rate and Rhythm: Normal rate and regular rhythm. Heart sounds: Normal heart sounds. Pulmonary: Effort: Pulmonary effort is normal. No tachypnea, accessory muscle usage or respiratory distress. Breath sounds: Normal breath sounds. No stridor. No wheezing, rhonchi or rales. Abdominal: General: There is no distension. Palpations: Abdomen is soft. Tenderness: There is no abdominal tenderness. There is no guarding or rebound. Musculoskeletal: Cervical back: Normal range of motion and neck supple. No edema, erythema, rigidity or tenderness. No pain with movement. Normal range of motion. Lymphadenopathy: Cervical: No cervical adenopathy. Skin: General: Skin is warm and dry. Neurological: Mental Status: She is alert and oriented to person, place, and time. ASSESSMENT/PLAN: 1. Viral illness - ICD9: 079.99, ICD10: B34.9 - Discussed viral etiology and rationale for treatment. - Symptomatic treatment with prn analgesia - Supportive care with fluids and rest No evidence of bacterial infection. Patient was educated on supportive therapies. Patient will follow up with primary care provider as needed. Patient was instructed to immediately proceed to emergency room for any new, worsening, or symptoms lasting longer than anticipated. The patient's clinical presentation is otherwise unremarkable at this time. Based on exam and clinical finding, the patient is stable for discharge. Plan of care was discussed with patient. Patient verbalizes understanding and agrees to plan of care. This note was generated using [employer] software. It may contain errors in wording, punctuation, or spelling. Ferdinand Reynaga APRN.[facility] 09-06-2023 History of Presen t illness Narrative Subjective HPI Nontoxic-appearing female presents to urgent care with chief complaint of upper respiratory tract like infection. Duration of symptoms 1 week. Associated symptoms sore throat, nasal congestion, nasal discharge and nonproductive cough. Patient denies the use of any [id number] medications or home remedies for symptom management. Patient states recent sick contacts with similar signs and symptoms. Patient denies any productive cough, fever, chest pain, shortness of breath, pleuritic pain, rash, abdominal pain, nausea, vomiting or change in bowel or bladder habit. Denies chance of . Is not breast-feeding. .Patient presents with: Cough: Cough, chest congestion, runny nose and STORY x 1 week PAST MEDICAL HISTORY Diagnosis Date NEGATIVE MEDICAL HISTORY PAST SURGICAL HISTORY Procedure Laterality Date NONE ALLERGIES Latex and Seasonal Allergies MEDICATIONS No prescriptions on file. FAMILY HISTORY Problem Relation Age of Onset Cancer Father throat Diabetes Paternal Aunt Diabetes Paternal Uncle Thyroid Mother other (prediabetes) Mother Thyroid Maternal Grandmother Diabetes Other Social History Tobacco Use Smoking status: Every Day Packs/day: 1 Types: Cigarettes Smokeless tobacco: Never Substance Use Topics Alcohol use: Yes Comment: 4 beers/ night Drug use: No BP 128/82 Pulse 78 Temp 36.6 C (97.9 F) (Tympanic) Resp 18 Wt 91.7 kg (202 lb 2.6 oz) LMP 12/18/2018 SpO2 97% Review of Systems Constitutional: Positive for malaise/fatigue. Negative for chills and fever. HENT: Positive for congestion, sinus pain and sore throat. Negative for ear discharge and ear pain. Eyes: Negative for blurred vision, pain, discharge and redness. Respiratory: Positive for cough. Negative for hemoptysis, sputum production, shortness of breath, wheezing and stridor. Cardiovascular: Negative for chest pain. Gastrointestinal: Negative for abdominal pain, diarrhea, nausea and vomiting. Musculoskeletal: Positive for myalgias. Skin: Negative for itching and rash. Neurological: Negative for dizziness and headaches. Objective Physical Exam Constitutional: General: She is not in acute distress. Appearance: She is not diaphoretic. HENT: Head: Normocephalic. Jaw: No trismus, tenderness, swelling or pain on movement. Right Ear: Tympanic membrane, ear canal and external ear normal. Left Ear: Tympanic membrane, ear canal and external ear normal. Nose: Congestion present. Mouth/Throat: Mouth: Mucous membranes are moist. Pharynx: Oropharynx is clear. Uvula midline. No pharyngeal swelling, oropharyngeal exudate, posterior oropharyngeal erythema or uvula swelling. Eyes: Conjunctiva/sclera: Conjunctivae normal. Pupils: Pupils are equal, round, and reactive to light. Cardiovascular: Rate and Rhythm: Normal rate and regular rhythm. Heart sounds: Normal heart sounds. Pulmonary: Effort: Pulmonary effort is normal. No tachypnea, accessory muscle usage or respiratory distress. Breath sounds: Normal breath sounds. No stridor. No wheezing, rhonchi or rales. Abdominal: General: There is no distension. Palpations: Abdomen is soft. Tenderness: There is no abdominal tenderness. There is no guarding or rebound. Musculoskeletal: Cervical back: Normal range of motion and neck supple. No edema, erythema, rigidity or tenderness. No pain with movement. Normal range of motion. Lymphadenopathy: Cervical: No cervical adenopathy. Skin: General: Skin is warm and dry. Neurological: Mental Status: She is alert and oriented to person, place, and time. ASSESSMENT/PLAN: 1. Viral illness - ICD9: 079.99, ICD10: B34.9 - Discussed viral etiology and rationale for treatment. - Symptomatic treatment with prn analgesia - Supportive care with fluids and rest No evidence of bacterial infection. Patient was educated on supportive therapies. Patient will follow up with primary care provider as needed. Patient was instructed to immediately proceed to emergency room for any new, worsening, or symptoms lasting longer than anticipated. The patient's clinical presentation is otherwise unremarkable at this time. Based on exam and clinical finding, the patient is stable for discharge. Plan of care was discussed with patient. Patient verbalizes understanding and agrees to plan of care. This note was generated using [employer] software. It may contain errors in wording, punctuation, or spelling. Ferdinand Reynaga APRN.DEBO documented in this encounter [facility] 01-10-2023 History of Presen t illness Narrative Radiology Service Progress Note PATIENT NAME: Michelle Ellis DATE OF SERVICE: January 10, 2023 TIME: 11:04 AM PATIENT IDENTITY VERIFICATION COMPLETED USING TWO (2) IDENTIFIERS: Name and Date of confirmed by patient verbally. FALL SCREENING: Has the patient had 2 falls in the last year or 1 fall with injury or currently using an Ambulatory Assistive Device (Walker, Cane, Wheelchair, Crutches, etc.)? No PATIENT GENDER DATA: Female. status: : No status: NO. PATIENT RELEVANT IMPLANT DATA REVIEWED: Not Applicable RADIOLOGY DEPARTMENT: Mammography PERIPHERAL IV DATA: Not applicable SIGNED BY: Rupali Santo January 10, 2023 11:04 AM documented in this encounter [facility] 01-10-2023 Note HNO ID: [id number] Author: Monica Machado Mammo Tech Service: ? Author Type: [place] Type: Progress Notes Filed: 01/10/2023 12:00 PM Note Text: Radiology Service Progress Note PATIENT NAME: Michelle Ellis DATE OF SERVICE: January 10, 2023 TIME: 11:04 AM PATIENT IDENTITY VERIFICATION COMPLETED USING TWO (2) IDENTIFIERS: Name and Date of confirmed by patient verbally. FALL SCREENING: Has the patient had 2 falls in the last year or 1 fall with injury or currently using an Ambulatory Assistive Device (Walker, Cane, Wheelchair, Crutches, etc.)? No PATIENT GENDER DATA: Female. status: : No status: NO. PATIENT RELEVANT IMPLANT DATA REVIEWED: Not Applicable RADIOLOGY DEPARTMENT: Mammography PERIPHERAL IV DATA: Not applicable SIGNED BY: Rupali Santo January 10, 2023 11:04 AM [facility] 01-10-2023 Miscellaneous Notes Formattin g of this note might be different from the original. Pt is scheduled for today for diagnostic phillip Radiologist asking for additional views unless there are mammograms outside [facility] available for comparison. If there are please send request for films and cancel following orders. Telephone on 01/10/23 [facility] DIAGNOSTIC RIGHT US BREAST LTD RIGHT Rigo Hagen PA-C documented in this encounter [facility] 01-09-2023 Miscellaneous Notes Formattin g of this note might be different from the original. Pt notified of the need for additional views. Pt transferred to [facility] to schedule. Imani Villalta LPN Message left for pt to call back for results. Aliza Esquivel MA Needs additional views: Telephone on 01/09/23 [facility] DIAGNOSTIC RIGHT US BREAST LTD RIGHT Rigo Hagen PA-C documented in this encounter [facility] 01-08-2023 Miscellaneous Notes Formattin g of this note might be different from the original. January 09, 2023 PID: [id number] Michelle Ellis [address] [place] [address] Dear Ms. Ellis, Your breast imaging exam 01/06/2023 showed a possible finding that may require additional imaging studies for a complete evaluation. However, we recognize you have prior imaging studies at facilities other than [facility], and would like the opportunity to compare your recent imaging with those studies to evaluate for any change. At this time, we have requested your prior studies. Your mammogram demonstrates that you have dense breast tissue, which could hide abnormalities. Dense breast tissue, in and of itself, is a relatively common condition. Therefore, this information is not provided to cause undue concern; rather, it is to raise your awareness and promote discussion with your health care provider regarding the presence of dense breast tissue in addition to other risk factors. If/when your prior studies arrive, a final report will be sent to your healthcare provider and/or you. In addition, you will receive a new result letter and or phone call If you need additional imaging. If we do not receive prior studies within 30 days of your exam, you will receive a reminder letter and or phone call to schedule your diagnostic imaging. Your imaging studies and reports are kept on file at [facility] as part of your permanent medical record, and are available for your continuing care. If you have any questions or concerns, please call [phone]. Thank you for choosing [facility] for your imaging needs. Sincerely, Dr. Arora Interpreting Radiologist [facility] ([employer]) documented in this encounter [facility] 01-06-2023 History of Presen t illness Narrative Radiology Service Progress Note PATIENT NAME: Michelle Ellis DATE OF SERVICE: January 06, 2023 TIME: 2:53 PM PATIENT IDENTITY VERIFICATION COMPLETED USING TWO (2) IDENTIFIERS: Name and Date of confirmed by patient verbally. FALL SCREENING: Has the patient had 2 falls in the last year or 1 fall with injury or currently using an Ambulatory Assistive Device (Walker, Cane, Wheelchair, Crutches, etc.)? No PATIENT GENDER DATA: Female. status: : No status: NO. PATIENT RELEVANT IMPLANT DATA REVIEWED: Not Applicable RADIOLOGY DEPARTMENT: Mammography PERIPHERAL IV DATA: Not applicable SIGNED BY: Rupali Peoples January 06, 2023 2:53 PM documented in this encounter [facility] 01-06-2023 Note HNO ID: [id number] Author: David Lizarraga Mammo Tech Service: ? Author Type: Technologist Type: Progress Notes Filed: 01/06/2023 3:24 PM Note Text: Radiology Service Progress Note PATIENT NAME: Michelle Ellis DATE OF SERVICE: January 06, 2023 TIME: 2:53 PM PATIENT IDENTITY VERIFICATION COMPLETED USING TWO (2) IDENTIFIERS: Name and Date of confirmed by patient verbally. FALL SCREENING: Has the patient had 2 falls in the last year or 1 fall with injury or currently using an Ambulatory Assistive Device (Walker, Cane, Wheelchair, Crutches, etc.)? No PATIENT GENDER DATA: Female. status: : No status: NO. PATIENT RELEVANT IMPLANT DATA REVIEWED: Not Applicable RADIOLOGY DEPARTMENT: Mammography PERIPHERAL IV DATA: Not applicable SIGNED BY: Rupali Peoples January 06, 2023 2:53 PM [facility] 11-17-2022 Miscellaneous Notes Formattin g of this note might be different from the original. Patient calls and notified that ultrasound of breasts was discontinued due to have to have mammogram with [facility] first. Explained to patient that ultrasounds are more diagnostic if problems are found and mammogram with [facility] is for screening. Patient voiced understanding. Transferred patient to schedule Mammogram with [facility] Kelly Rodrigues RN Patient did not answer, left message to call and ask for a nurse. Please schedule based on radiologist's recommendation Telephone on 11/17/22 [facility] W Rigo Smith PA-C documented in this encounter [facility] 11-09-2022 Note Patient Outreach (IN [facility]) MICHELLE ELLIS ([id number]) 1980 F Date Time Provider Department 11/09/22 Thom GELLER During your visit today, we recorded the following information about you: Allergies As of Date: 11/09/2022 Noted Allergy Reaction LATEX 08/01/2007 SEASONAL ALLERGIES 12/24/2018 14 - Other: See Comments Date Reviewed: 11/07/2022 Reviewed by: Gypsy Pettit Ma - Fully Assessed Visit Diagnosis:Encounter for screening mammogram for breast cancer [Z12.31] Order(s):[facility] SCREENING [[id number]] Order #: [id number] FUTURE Problem List As Of Date 11/09/2022 Noted Resolved Adjustment reaction with anxiety and depression*01/13/2009 Tobacco Dependence [F17.200] 01/13/2009 PMS (premenstrual syndrome) [N94.3] 01/04/2013 FH: type 2 diabetes [Z83.3] 10/01/2019 Encounter Status:Closed by [employer] on 11/14/22 [facility] 11-07-2022 Note HNO ID: [id number] Author: Thom Geller PA-C Service: ? Author Type: Physician Vice President & General Manager [employer] Type: Progress Notes Filed: 11/07/2022 5:51 PM Note Text: 42 year old female with c/o concern about transformation to diabetes. Last Monday stood up, felt shakey, limbs felt weak. Has happened a other times as well. Feeling tired all the time. Right upper arm hurting into shoulder Her mom was told she is diabetic: managed by losing weight. Very active running kids to and from activities. Mood stable, always cheerful and feels she is energetic Changed location in job, started in April, 40 minutes always. Menses very regular 27-28 days, heavy second day, clots size if a quarter to 50 cent piece. No incontinence No bowel issues Joints are doing okay- knows she needs to exercise. HISTORIES FAMILY HISTORY Problem Relation Age of Onset Cancer Father throat Diabetes Paternal Aunt Diabetes Paternal Uncle Thyroid Mother other (prediabetes) Mother Thyroid Maternal Grandmother Diabetes Other PAST MEDICAL HISTORY Diagnosis Date NEGATIVE MEDICAL HISTORY PAST SURGICAL HISTORY Procedure Laterality Date NONE Social History Tobacco Use Smoking status: Every Day Packs/day: 1.00 Types: Cigarettes Smokeless tobacco: Never Substance Use Topics Alcohol use: Yes Comment: 4 beers/ night Drug use: No ACTIVE PROBLEM LIST Adjustment Reaction With Anxiety and Depression Tobacco Dependence Pms (Premenstrual Syndrome) Fh: Type 2 Diabetes No current outpatient medications on file. No current facility-administered medications for this visit. HEPATITIS B(1 of 3 - 3-dose series) Never done COVID-19 VACCINE(1) Never done PNEUMOCOCCAL(1 - PCV) Never done HEPATITIS C SCREENING Never done DTAP,TDAP,TD(7 - Tdap) due on 06/18/2006 MAMMOGRAM due on 03/23/2021 DEPRESSION ASSESSMENT Never done EXAM: BP 118/76 Pulse 93 Resp 16 Wt 95.7 kg (211 lb) LMP 12/18/2018 SpO2 98% Pleasant adult woman in no acute distress. Alert and oriented all spheres. Normal affect and cognition. Speech normal. No deficits to learning or comprehension. Skin warm, dry, pink to lips and nailbeds. Normal turgor. No significant lesions. Respirations regular and unlabored. HEENT: NCAT. PERRLA. No scleral icterus or conjunctival injection. TM's clear. Nose and oropharynx free from injection or lesion. Oral membranes moist and pink. No cervical lymph nodes. Thyroid non-tender, no masses, or enlargement. Carotids pulses 2+/4+ without bruits. Neck veins flat. Chest is normal shape. Lungs are clear to all davis with good air exchange through out. HRRR without murmur or gallop. No lifts, heaves, or rubs. Abdomen: active bowel sounds throughout, soft, nontender, no masses or organomegaly. No CVAT. No abdominal bruits, axillary or inguinal nodes. Femoral pulses 2/4+ without bruit. Back relatively even hips and shoulders. Able to touch toes. . Extrem: no clubbing or cyanosis. Edema: none. Extremities are warm and pink with prompt capillary refill. Peripheral pulses 2/4+ Gait and balance normal. Sensation grossly intact. Negative findings: speech normal, mental status intact, cranial nerves 2-12 intact, muscle tone normal, DTRs 2/4+ and symmetric ASSESSMENT/PLAN: 1. Episodic weakness - ICD9: 728.87, ICD10: R53.1 (primary diagnosis) - CBC + DIFF - COMP METABOLIC PANEL - HGB A1C - TSH BLD 2. Fatigue, unspecified type - ICD9: 780.79, ICD10: R53.83 - CBC + DIFF - COMP METABOLIC PANEL - HGB A1C - TSH BLD 3. Dense breast tissue - ICD9: 793.82, ICD10: R92.2 Switch to ultrasound for future - US BREAST LTD LEFT - US BREAST LTD RIGHT 4. Encounter for screening mammogram for malignant neoplasm of breast - ICD9: V76.12, ICD10: Z12.31 - Encouraged monthly BSE - Follow up for annual exam in one year. - see [facility] for pap an pelvic - US BREAST LTD LEFT - US BREAST LTD RIGHT 5. Wellness examination - ICD9: V70.0, ICD10: Z00.00 - Counseled on healthy diet and regular exercise - Calcium intake with supplements or by diet of 1000 mg/day for under 50, 8101-9464 mg/day for 50+ - Discussed need and benefit for weight loss. BMI 35.11 kg/(m2) - Depression screening tool completed and reviewed with patient. Based on score and interview, patient is not at risk for depression and recommended no further intervention at this time. Thom Geller PA-C Some of this note may have been copied and pasted for the purpose of history context and comparison. [facility] 11-07-2022 History of Presen t illness Narrative 42 year old female with c/o concern about transformation to diabetes. Last Monday stood up, felt shakey, limbs felt weak. Has happened a other times as well. Feeling tired all the time. Right upper arm hurting into shoulder Her mom was told she is diabetic: managed by losing weight. Very active running kids to and from activities. Mood stable, always cheerful and feels she is energetic Changed location in job, started in April, 40 minutes always. Menses very regular 27-28 days, heavy second day, clots size if a quarter to 50 cent piece. No incontinence No bowel issues Joints are doing okay- knows she needs to exercise. HISTORIES FAMILY HISTORY Problem Relation Age of Onset Cancer Father throat Diabetes Paternal Aunt Diabetes Paternal Uncle Thyroid Mother other (prediabetes) Mother Thyroid Maternal Grandmother Diabetes Other PAST MEDICAL HISTORY Diagnosis Date NEGATIVE MEDICAL HISTORY PAST SURGICAL HISTORY Procedure Laterality Date NONE Social History Tobacco Use Smoking status: Every Day Packs/day: 1.00 Types: Cigarettes Smokeless tobacco: Never Substance Use Topics Alcohol use: Yes Comment: 4 beers/ night Drug use: No ACTIVE PROBLEM LIST Adjustment Reaction With Anxiety and Depression Tobacco Dependence Pms (Premenstrual Syndrome) Fh: Type 2 Diabetes No current outpatient medications on file. No current facility-administered medications for this visit. HEPATITIS B(1 of 3 - 3-dose series) Never done COVID-19 VACCINE(1) Never done PNEUMOCOCCAL(1 - PCV) Never done HEPATITIS C SCREENING Never done DTAP,TDAP,TD(7 - Tdap) due on 06/18/2006 MAMMOGRAM due on 03/23/2021 DEPRESSION ASSESSMENT Never done EXAM: BP 118/76 Pulse 93 Resp 16 Wt 95.7 kg (211 lb) LMP 12/18/2018 SpO2 98% Pleasant adult woman in no acute distress. Alert and oriented all spheres. Normal affect and cognition. Speech normal. No deficits to learning or comprehension. Skin warm, dry, pink to lips and nailbeds. Normal turgor. No significant lesions. Respirations regular and unlabored. HEENT: NCAT. PERRLA. No scleral icterus or conjunctival injection. TM's clear. Nose and oropharynx free from injection or lesion. Oral membranes moist and pink. No cervical lymph nodes. Thyroid non-tender, no masses, or enlargement. Carotids pulses 2+/4+ without bruits. Neck veins flat. Chest is normal shape. Lungs are clear to all davis with good air exchange through out. HRRR without murmur or gallop. No lifts, heaves, or rubs. Abdomen: active bowel sounds throughout, soft, nontender, no masses or organomegaly. No CVAT. No abdominal bruits, axillary or inguinal nodes. Femoral pulses 2/4+ without bruit. Back relatively even hips and shoulders. Able to touch toes. . Extrem: no clubbing or cyanosis. Edema: none. Extremities are warm and pink with prompt capillary refill. Peripheral pulses 2/4+ Gait and balance normal. Sensation grossly intact. Negative findings: speech normal, mental status intact, cranial nerves 2-12 intact, muscle tone normal, DTRs 2/4+ and symmetric ASSESSMENT/PLAN: 1. Episodic weakness - ICD9: 728.87, ICD10: R53.1 (primary diagnosis) - CBC + DIFF - COMP METABOLIC PANEL - HGB A1C - TSH BLD 2. Fatigue, unspecified type - ICD9: 780.79, ICD10: R53.83 - CBC + DIFF - COMP METABOLIC PANEL - HGB A1C - TSH BLD 3. Dense breast tissue - ICD9: 793.82, ICD10: R92.2 Switch to ultrasound for future - US BREAST LTD LEFT - US BREAST LTD RIGHT 4. Encounter for screening mammogram for malignant neoplasm of breast - ICD9: V76.12, ICD10: Z12.31 - Encouraged monthly BSE - Follow up for annual exam in one year. - see [facility] for pap an pelvic - US BREAST LTD LEFT - US BREAST LTD RIGHT 5. Wellness examination - ICD9: V70.0, ICD10: Z00.00 - Counseled on healthy diet and regular exercise - Calcium intake with supplements or by diet of 1000 mg/day for under 50, 0665-1606 mg/day for 50+ - Discussed need and benefit for weight loss. BMI 35.11 kg/(m^2) - Depression screening tool completed and reviewed with patient. Based on score and interview, patient is not at risk for depression and recommended no further intervention at this time. Thom Geller PA-C Some of this note may have been copied and pasted for the purpose of history context and comparison. documented in this encounter [facility] 08-04-2021 Instructions Marian Valiente APRN.CNP - 08/04/2021 9:29 AM EDT 1.) Try to take buspar 10 mg at night to see if you see improvement with anxiety. 2.) Take blood pressure at home 1-2 times per day, write numbers down, bring to next visit or mychart office. 3.) watch salt/processed foods in the diet. 4.) Follow up 1 month. documented in this encounter [facility] 08-04-2021 History of Presen t illness Narrative This is a 41 year old female who presents today with: Patient presents with: Blood Pressure HISTORY OF PRESENT ILLNESS: Michelle Ellis is a 41 year old female. Patient presents with: Blood Pressure Patient of Rigo Geller PA-C, here in the office for concerns for hypertension and flushed face. Had elevated BP at [facility] office last week. Has been off alcohol for the past 3 week, normally drinking 3 days per week, 3-6 drinks per night. Has noticed some facial flushing. Increased anxiety, has RX for buspar but does not like taking medication. Refers the medication makes her feel funny. Increased situational anxiety with family and . Denies any chest pain, palpitations, headaches, or vision changes. PAST MEDICAL HISTORY: PAST MEDICAL HISTORY Diagnosis Date NEGATIVE MEDICAL HISTORY PAST SURGICAL HISTORY Procedure Laterality Date NONE ALLERGIES Latex and Seasonal Allergies MEDICATIONS Current Outpatient Medications Medication Sig trimethoprim-polymyxin (POLYTRIM) 10,000 unit- 1 mg/mL ophthalmic solution Use 1 Drop in both eyes four times daily. busPIRone (BUSPAR) 10 mg tablet Take 1 tablet by mouth twice daily. venlafaxine ER (EFFEXOR XR) 150 mg 24 hr capsule Take 1 capsule by mouth once daily. (Patient not taking: Reported on 11/23/2020 ) No current facility-administered medications for this visit. FAMILY HISTORY Problem Relation Age of Onset Cancer Father throat Diabetes Paternal Aunt Diabetes Paternal Uncle Thyroid Mother other (prediabetes) Mother Thyroid Maternal Grandmother Diabetes Other Social History Tobacco Use Smoking status: Current Every Day Smoker Packs/day: 1.00 Types: Cigarettes Smokeless tobacco: Never Used Substance Use Topics Alcohol use: Yes Comment: 4 beers/ night Drug use: No REVIEW OF SYSTEMS GENERAL: No weight loss, malaise or fevers/chills HEENT: Negative for frequent or significant headaches, No changes in hearing or vision. NECK: Negative for lumps, goiter, pain and significant neck swelling RESPIRATORY: Negative for cough, hemoptysis, wheezing, dyspnea or shortness of breath CARDIOVASCULAR: Negative for chest pain, leg swelling, orthopnea, or palpitations GI: No nausea, vomiting, or diarrhea/constipation. No hematochezia/melena. No heartburn or reflux symptoms. : No history of dysuria, frequency or incontinence MUSCULOSKELETAL: Negative for joint pain or swelling. SKIN: Negative for lesions, rash, and itching ENDOCRINE: Negative for cold or heat intolerance, polyuria, polydipsia and goiter NEURO: No history of headaches, syncope, paralysis, seizures or tremors MOOD: + anxiety EXAM: BP 128/88 Pulse 79 Wt 97.1 kg (214 lb) LMP 12/18/2018 SpO2 98% PHYSICAL EXAM: General Appearance: Well appearing, alert, in no acute distress, well-hydrated, well nourished. Skin: Skin color, texture, turgor normal, no suspicious rashes or lesions. Head: Normocephalic, no masses, lesions, tenderness or abnormalities. Eyes: Anicteric sclera. Extraocular movements are intact. Lungs: Lungs clear to auscultation. No wheezing, rhonchi, rales. Heart: RRR without murmur, gallop, or rubs. No ectopy. Extremities: No deformities, edema, skin discoloration, clubbing or cyanosis. Good capillary refill. Peripheral Pulses: Normal, Capillary refill <2secs, strong peripheral pulses, Pulses palpable. ASSESSMENT/PLAN: 1. Elevated BP without diagnosis of hypertension - ICD9: 796.2, ICD10: R03.0 (primary diagnosis) - Encouraged dietary sodium restriction/DASH diet - Recommended regular aerobic exercise. - Recommend home blood pressure monitoring, to bring results in on next visit - Encouraged avoidance of excessive alcohol intake - Discussed need and benefit for weight loss. - Follow up in 1 month for BP recheck. - Goal of BP <130/80 2. Anxiety with depression - ICD9: 300.4, ICD10: F41.8 - Recommend taking Buspar at bedtime to see if decreased side effect. Follow-up in 1 month or sooner as needed. Discussed treatment plan and patient voices understanding. Patient's questions answered appropriately. Medications and potential side effects were discussed and patient voices understanding. Marian Valiente APRN.DEBO This note was partially generated using [employer] voice recognition system. Note was reviewed for accuracy. There may be minor misspellings or grammar miscues with [employer] voice recognition. documented in this encounter [facility] 07-22-2021 Note [facility] Work Phone: Pap Smear Specimen Adequacy July 22, 2021 4:00pm Comment Satisfactory for evaluation. Endocervical and/or squamous metaplasticcells (endocervical component) are present. Comment on above: Satisfactory for yodit luation. Endocervical and/or squamous metaplasticcells (endocervical component) are present. 07-22-2021 Note [facility] Work Phone: Pap Smear Specimen Adequacy July 22, 2021 4:00pm Comment Satisfactory for evaluation. Endocervical and/or squamous metaplasticcells (endocervical component) are present. Comment on above: Satisfactory for yodit luation. Endocervical and/or squamous metaplasticcells (endocervical component) are present. Evaluation note Diagnosis Elevated BP without diagnosis of hypertension- Primary Anxiety with depression documented in this encounter [facility] noteNo assessment [facility] Work Phone[facility] Evaluation note* Diagnosis Encounter for screening mammogram for breast cancer documented in this encounter [facility] note* Diagnosis Episodic weakness- Primary Fatigue, unspecified type Dense breast tissue Encounter for screening mammogram for malignant neoplasm of breast Other screening mammogram Wellness examination Special screening examination for viral disease Special screening examination for unspecified viral disease Encounter for immunization Need for other specified prophylactic vaccination against single bacterial disease documented in this encounter [facility] note* Diagnosis Encounter for screening mammogram for breast cancer documented in this encounter [facility] note* Diagnosis Encounter for screening mammogram for malignant neoplasm of breast- Primary Other screening mammogram Dense breasts Inconclusive mamm[facility] Diagnosis Inconclusive mammogram- Primary [facility]* Diagnosis Inconclusive mammogram- Primary documented in this encounter [facility] note* Diagnosis Inconclusive mammogram documented in this encounter [facility] note* Diagnosis Inconclusive mammogram documented in this encounter [facility] note* Diagnosis Encounter for screening mammogram for malignant neoplasm of breast Other screening mammogram Dense breasts Inconclusive mammogram documented in this encounter [facility] note* Diagnosis Viral illness- Primary Unspecified viral infection, in conditions classified elsewhere and of unspecified site documented in this encounter [facility] note* Diagnosis Menstrual-related mood disorder- Primary Premenstrual tension syndromes GUI (generalized anxiety disorder) Generalized anxiety disorder Encounter for screening mammogram for malignant neoplasm of breast Other screening mammogram URI, acute Acute upper respiratory infections of unspecified site [facility]* Diagnosis Encounter for gynecological examination (general) (routine) without abnormal findings- Primary Screening for cervical cancer Screening for malignant neoplasm of the cervix Encounter for screening for human papillomavirus (HPV) Special screening examination for human papillomavirus (HPV) Encounter for screening mammogram for breast cancer documented in this encounter [facility] for referral (narrative)* Diagnostic Procedure Only (Routine) - Pending Review Specialty Diagnoses / Procedures Referred By Makeda urias Referred To Contact [facility] Diagnoses Encounter for screening mammogram for breast cancer Procedures PHILLIP SCREENING SCREENING MAMMOGRAPHY BI 2-VIEW BREAST INC CAD Thom Geller PA-C [address] [place] [address] [facility] [address] [place] [address] Referral ID Status Reason Start Date Expiration Date Visits Requested Visits Authorized [id number] Pending Review Auto-Generat ed Referral 02/16/2022 03/18/2023 1 1 [facility] for referral (narrative)* Diagnostic Procedure Only (Routine) - Authorized Specialty Diagnoses / Procedures Referred By Makeda urias Referred To Contact [facility] Diagnoses Dense breast tissue Encounter for screening mammogram for malignant neoplasm of breast Procedures US BREAST LTD RIGHT US BREAST UNI REAL TIME WITH IMAGE LIMITED Thom Geller PA-C [address] [place] [address] [facility] [address] [facility] [place] [address] Referral ID Status Reason Start Date Expiration Date Visits Requested Visits Authorized [id number] Authorized Auto-Generat ed Referral 11/07/2022 12/07/2023 1 1 * Diagnostic Procedure Only (Routine) - Authorized Specialty Diagnoses / Procedures Referred By Makeda urias Referred To Contact [facility] Diagnoses Dense breast tissue Encounter for screening mammogram for malignant neoplasm of breast Procedures US BREAST LTD LEFT US BREAST UNI REAL TIME WITH IMAGE LIMITED Thom Geller PA-C [address] [place] [address] [facility] [address] [facility] [place] [address] Referral ID Status Reason Start Date Expiration Date Visits Requested Visits Authorized [id number] Authorized Auto-Generat ed Referral 11/07/2022 12/07/2023 1 1 [facility] for referral (narrative)* Diagnostic Procedure Only (Routine) - Pending Review Specialty Diagnoses / Procedures Referred By Makeda urias Referred To Contact [facility] Diagnoses Encounter for screening mammogram for breast cancer Procedures PHILLIP SCREENING SCREENING MAMMOGRAPHY BI 2-VIEW BREAST INC Thom Clemens PA-C [address] [place] [address] [facility] [address] [place] [address] Referral ID Status Reason Start Date Expiration Date Visits Requested Visits Authorized [id number] Pending Review Auto-Generat ed Referral 11/09/2022 12/09/2023 1 1 [facility] for referral (narrative)* Diagnostic Procedure Only (Routine) - Authorized Specialty Diagnoses / Procedures Referred By Makeda urias Referred To Contact [facility] Diagnoses Encounter for screening mammogram for malignant neoplasm of breast Dense breasts Procedures PHILLIP SCREENING W GARRETT SCREENING DIGITAL BREAST TOMOSYNTHESIS BI SCREENING MAMMOGRAPHY BI 2-VIEW BREAST INC CAD Thom Geller PA-C [address] [place] [address] [facility] [address] [place] [address] Referral ID Status Reason Start Date Expiration Date Visits Requested Visits Authorized [id number] Authorized Auto-Generat ed Referral 11/17/2022 12/17/2023 1 1 [facility] for referral (narrative)* Diagnostic Procedure Only (Routine) - Authorized Specialty Diagnoses / Procedures Referred By Makeda urias Referred To Contact [facility] Diagnoses Inconclusive mammogram Procedures US BREAST LTD RIGHT US BREAST UNI REAL TIME WITH IMAGE LIMITED Thom Geller PA-C [address] [place] [address] [facility] [address] [place] [address] Referral ID Status Reason Start Date Expiration Date Visits Requested Visits Authorized [id number] Authorized Auto-Generat ed Referral 01/09/2023 02/08/2024 1 1 * Diagnostic Procedure Only (Routine) - Authorized Specialty Diagnoses / Procedures Referred By Makeda t Referred To Contact [facility] Diagnoses Inconclusive mammogram Procedures PHILLIP DIAGNOSTIC RIGHT DIAGNOSTIC MAMMOGRAPHY COMPUTER-AIDED DETCJ Thom Mathis PA-C [address] [place] [address] [facility] [address] [place] [address] Referral ID Status Reason Start Date Expiration Date Visits Requested Visits Authorized [id number] Authorized Auto-Generat ed Referral 01/09/2023 02/08/2024 1 1 [facility] for referral (narrative)* Diagnostic Procedure Only (Routine) - Pending Review Specialty Diagnoses / Procedures Referred By Makeda t Referred To Contact [facility] Diagnoses Inconclusive mammogram Procedures US BREAST LTD RIGHT US BREAST UNI REAL TIME WITH IMAGE LIMITED Thom Geller PA-C [address] [place] [address] [facility] [address] [facility] [place] [address] Referral ID Status Reason Start Date Expiration Date Visits Requested Visits Authorized [id number] Pending Review Auto-Generat ed Referral 01/10/2023 02/09/2024 1 1 * Diagnostic Procedure Only (Routine) - Pending Review Specialty Diagnoses / Procedures Referred By Makeda t Referred To Contact [facility] Diagnoses Inconclusive mammogram Procedures PHILLIP DIAGNOSTIC RIGHT DIAGNOSTIC MAMMOGRAPHY COMPUTER-AIDED DETCJ Thom Mathis PA-C [address] [place] [address] [facility] [address] [place] [address] Referral ID Status Reason Start Date Expiration Date Visits Requested Visits Authorized [id number] Pending Review Auto-Generat ed Referral 01/10/2023 02/09/2024 1 1 [facility] for referral (narrative)* Diagnostic Procedure Only (Routine) - Closed Specialty Diagnoses / Procedures Referred By Makeda urias Referred To Contact [facility] Diagnoses Encounter for screening mammogram for malignant neoplasm of breast Dense breasts Procedures PHILLIP SCREENING W GARRETT SCREENING DIGITAL BREAST TOMOSYNTHESIS BI SCREENING MAMMOGRAPHY BI 2-VIEW BREAST INC Thom Clemens PA-C [address] [place] [address] [facility] [address] [facility] [place] [address] Referral ID Status Reason Start Date Expiration Date V isits Requested Visits Authorized [id number] Closed Auto-Generate d Referral 11/17/2022 12/17/2023 1 1 [facility] for referral (narrative)* Diagnostic Procedure Only (Routine) - Authorized Specialty Diagnoses / Procedures Referred By Makeda urias Referred To Contact [facility] Diagnoses Encounter for screening mammogram for malignant neoplasm of breast Procedures PHILLIP SCREENING W GARRETT SCREENING DIGITAL BREAST TOMOSYNTHESIS BI SCREENING MAMMOGRAPHY BI 2-VIEW BREAST INC Thom Clemens PA-C [address] [place] [address] [facility] [address] [place] [address] Referral ID Status Reason Start Date Expiration Date Visits Requested Visits Authorized [id number] Authorized Auto-Generat ed Referral 01/07/2024 10/25/2024 1 1 T [facility] for visit Narrative* Diagnostic Procedure Only (Routine) - Authorized Specialty Diagnoses / Procedures Referred By Makeda t Referred To Contact [facility] Diagnoses Inconclusive mammogram Procedures US BREAST LTD RIGHT US BREAST UNI REAL TIME WITH IMAGE LIMITED Thom Geller PA-C [address] [place] [address] [facility] [address] [place] [address] Referral ID Status Reason Start Date Expiration Date Visits Requested Visits Authorized [id number] Authorized Auto-Generat ed Referral 01/09/2023 02/08/2024 1 1 [facility] for visit Narrative* Diagnostic Procedure Only (Routine) - Closed Specialty Diagnoses / Procedures Referred By Contac t Referred To Contact [facility] Diagnoses Inconclusive mammogram Procedures PHILLIP DIAGNOSTIC RIGHT DIAGNOSTIC MAMMOGRAPHY COMPUTER-AIDED DETCJ UNI Thom Geller PA-C [address] [place] [address] [facility] [address] [place] [address] Referral ID Status Reason Start Date Expiration Date V isits Requested Visits Authorized [id number] Closed Auto-Generate d Referral 01/09/2023 02/08/2024 1 1 [facility] for visit Narrative* Diagnostic Procedure Only (Routine) - Closed Specialty Diagnoses / Procedures Referred By Makeda urias Referred To Contact [facility] Diagnoses Encounter for screening mammogram for malignant neoplasm of breast Dense breasts Procedures PHILLIP SCREENING W GARRETT SCREENING DIGITAL BREAST TOMOSYNTHESIS BI SCREENING MAMMOGRAPHY BI 2-VIEW BREAST INC CAD Thom Geller PA-C [address] [place] [address] [facility] [address] [place] [address] Referral ID Status Reason Start Date Expiration Date V isits Requested Visits Authorized [id number] Closed Auto-Generate d Referral 11/17/2022 12/17/2023 1 1 [facility] Chief Complaint and Reason for Visit Chief Complaint SCREENING Advance Directives No Advanced Directives Records Found Advance Directive Response Recorded Date/ Time Living Will No June 01 11:24am 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 No June 01, 2015 11:24am Summary Purpose Family History No Family History Records FoundNo Family History Records Found Additional Source Comments Source Comments (unrecognize d section and content) In the event this informatio n is protected by the Federal Confidentiality of Alcohol and Drug Abuse Patient Records regulations: The Federal rules restrict any use of the information to criminally investigate or prosecute any alcohol or drug abuse patient.[facility] the event this information is protected by the Federal Confidentiality of Alcohol and Drug Abuse Patient Records regulations: The Federal rules restrict any use of the information to criminally investigate or prosecute any alcohol or drug abuse patient.[facility] HospitalIn the event this information is protected by the Federal Confidentiality of Alcohol and Drug Abuse Patient Records regulations: The Federal rules restrict any use of the information to criminally investigate or prosecute any alcohol or drug abuse patient.[facility] HospitalIn the event this information is protected by the Federal Confidentiality of Alcohol and Drug Abuse Patient Records regulations: The Federal rules restrict any use of the information to criminally investigate or prosecute any alcohol or drug abuse patient.[facility] HospitalIn the event this information is protected by the Federal Confidentiality of Alcohol and Drug Abuse Patient Records regulations: The Federal rules restrict any use of the information to criminally investigate or prosecute any alcohol or drug abuse patient.[facility] HospitalIn the event this information is protected by the Federal Confidentiality of Alcohol and Drug Abuse Patient Records regulations: The Federal rules restrict any use of the information to criminally investigate or prosecute any alcohol or drug abuse patient.[facility] HospitalIn the event this information is protected by the Federal Confidentiality of Alcohol and Drug Abuse Patient Records regulations: The Federal rules restrict any use of the information to criminally investigate or prosecute any alcohol or drug abuse patient.[facility] HospitalIn the event this information is protected by the Federal Confidentiality of Alcohol and Drug Abuse Patient Records regulations: The Federal rules restrict any use of the information to criminally investigate or prosecute any alcohol or drug abuse patient.[facility] HospitalIn the event this information is protected by the Federal Confidentiality of Alcohol and Drug Abuse Patient Records regulations: The Federal rules restrict any use of the information to criminally investigate or prosecute any alcohol or drug abuse patient.[facility] HospitalIn the event this information is protected by the Federal Confidentiality of Alcohol and Drug Abuse Patient Records regulations: The Federal rules restrict any use of the information to criminally investigate or prosecute any alcohol or drug abuse patient.[facility] HospitalIn the event this information is protected by the Federal Confidentiality of Alcohol and Drug Abuse Patient Records regulations: The Federal rules restrict any use of the information to criminally investigate or prosecute any alcohol or drug abuse patient.[facility] HospitalIn the event this information is protected by the Federal Confidentiality of Alcohol and Drug Abuse Patient Records regulations: The Federal rules restrict any use of the information to criminally investigate or prosecute any alcohol or drug abuse patient.[facility] HospitalIn the event this information is protected by the Federal Confidentiality of Alcohol and Drug Abuse Patient Records regulations: The Federal rules restrict any use of the information to criminally investigate or prosecute any alcohol or drug abuse patient.[facility] HospitalIn the event this information is protected by the Federal Confidentiality of Alcohol and Drug Abuse Patient Records regulations: The Federal rules restrict any use of the information to criminally investigate or prosecute any alcohol or drug abuse patient.[facility] Reason for Visit (unrecogniz ed section and content) Reason Comments Blood Pressure Reason Comments Appointment Reason Comments Results Reason Comments Cough Cough, chest congest ion, runny nose and STORY x 1 week Reason Comments Follow Up Reason Comments [facility] Teams (unrecognized sec tion and content) [employer] Helper Relationship Specialty Start Date End Date Thom Geller PA-C [address] [place], [place] [address] PCP - General Family Practice 01/14/19 [employer] Helper Relationship Specialty Start Date End Date Thom Geller PA-C [address] [place] [address] PCP - General Family Medicine 01/14/19 [employer] Insulator Helper Relationship Specialty Start Date End Date Thom Geller PA-C [address] [place], [place] [id number] PCP - General Family Medicine 01/14/19 [employer] Insulator Helper Relationship Specialty Start Date End Date Thom Geller PA-C [address] [place] [address] PCP - General Family Medicine 01/14/19 [employer] Insulator Helper Relationship Specialty Start Date End Date Thom Geller PA-C [address] [place] [address] PCP - General Family Medicine 01/14/19 [employer] Insulator Helper Relationship Specialty Start Date End Date Thom Geller PA-C [address] [place] [address] PCP - General Family Medicine 01/14/19 [employer] Insulator Helper Relationship Specialty Start Date End Date Thom Geller PA-C [address] [place] [address] PCP - General Family Medicine 01/14/19 [employer] Insulator Helper Relationship Specialty Start Date End Date Thom Geller PA-C [address] [place] [address] PCP - General Family Medicine 01/14/19 [employer] Insulator Helper Relationship Specialty Start Date End Date Thom Geller PA-C [address] [place] [address] PCP - General Family Medicine 01/14/19 [employer] Insulator Helper Relationship Specialty Start Date End Date Thom Geller PA-C [address] [place] [address] PCP - General Family Medicine 01/14/19 [employer] Insulator Helper Relationship Specialty Start Date End Date Thom Geller PA-C [address] [place] [address] PCP - General Family Medicine 01/14/19 [employer] Insulator Helper Relationship Specialty Start Date End Date Thom Geller PA-C [address] [place], [place] [address] PCP - General Family Medicine 01/14/19 [employer] Insulator Helper Relationship Specialty Start Date End Date Thom Geller PA-C [address] [facility] [place], [place] [address] PCP - General Family Medicine 01/14/19 Goals (unrecognized section and content) Goals may be documented in a n alternate sectionGoals may be documented in an alternate section INFORMATION SOURCE (unrecogn ized section and content) DATE CREATED AUTHOR 08/26/2021 [facility] DATE CREATED AUTHOR 'S VY MARROQUIN 11/02/2023 [facility] FOR RECORDS PERTAINING TO PATIENTS WHO ARE OR HAVE BEEN ENROLLED IN A CHEMICAL DEPENDENCY/SUBSTANCEABUSE PROGRAM, SOME INFORMATION MAY BE OMITTED. This clinical summary was aggregated from multiple sources. Caution should be exercised in using it in the provision of clinical care. This summary normalizes information from multiple sources, and as a consequence, information in this document may materially change the coding, format and clinical context of patient data. In addition, data may be omitted in some cases. CLINICAL DECISIONS SHOULD BE BASED ON THE PRIMARY CLINICAL RECORDS. [employer] provides no warranty or guarantee of the accuracy or completeness of information in this document.
[2024-10-23 09:40] VITALS: PULSE 76; RESP 19
[2024-10-23 10:34] VITALS: BP 134/96; PULSE 84; RESP 17; TEMP 36.6; O2SAT 99
== END 2024-10-23 10:35 | disposition home or self-care (01) ==
PROVIDERS: Emergency Provider Emergency Medicine; PCP Family Medicine; Visit Provider Emergency Medicine
DX: R10.11 Right upper quadrant pain (principal); K80.70 Calculus of gallbladder and bile duct without cholecystitis without obstruction; R03.0 Elevated blood-pressure reading, without diagnosis of hypertension; F17.210 Nicotine dependence, cigarettes, uncomplicated; K80.20 Calculus of gallbladder without cholecystitis without obstruction
CPT/HCPCS: 76705; 80048; 80076; 83690; 85025; 99283; A4216

== ENCOUNTER → 2024-12-06 | Outpatient (CLI) | payer BC, SELFPAY ==
[2024-12-06 16:56] LABS: Mucous, Urine 0 SEEN /hpf (<or=2+)
[2024-12-06 17:45] LABS: Hematocrit 43.8 % (37-47); Hemoglobin 14.2 g/dL (12.0-15.0); Immature Granulocytes Count 0.030 X10^3/uL (0.0-0.0); Mean Corp Hgb Conc 32.4 g/dL (32-36); Mean Corpuscular Volume 83.1 fL (81-99); Mean Platelet Vol. 10.8 fl (6.2-12.0); NRBC Flagged by Analyzer 0 % (0-5); Platelet Count 372 K/mm3 (150-450); RBC Distribution Width CV 14.9 % (11.6-14.6); RBC Distribution Width SD 45.3 fl (35.1-43.9); Red Blood Count 5.27 M/mm3 (4.2-5.4); White Blood Count 10.1 K/mm3 (4.4-11.0)
[2024-12-06 18:46] LABS: AST(SGOT) 16 U/L (<=31); Alanine Aminotransfer ALT/SGPT 19 U/L (<=34); Albumin, Serum 4.7 g/dL (3.5-5.0); Alkaline Phosphatase 82 U/L (35-104); Anion Gap 14 (5-15); BUN 13 mg/dL (4-19); BUN/Creat Ratio 17.0 RATIO (10-20); Calcium,Total 9.7 mg/dL (7.6-11.0); Carbon Dioxide 24.9 mmol/L (21.0-32.0); Chloride 101 mmol/L (98-108); Cholesterol 169 mg/dL (<=200); Globulin 3.2 g/dL (2.2-4.2); Glucose 96 mg/dL (70-99); Low Density Lipoprotein Calc. 79 mg/dL; Potassium 3.8 mmol/L (3.3-5.1); Triglycerides 139 mg/dL; Very Low Density Lipoprotein 28 mg/dL (5-40); cholesterol:hdl ratio screen 2.73
[2024-12-06 19:15] LABS: Vitamin D,25 Hydroxy 20.5 ng/mL (30-100)
[2024-12-06 20:08] LABS: Color, Urine Straw (Yellow); Glucose, Dipstick Normal (Normal); Ketone-Dipstick Negative (Negative); Leukocyte Esterase-Dipstick Negative /ul (Negative); Nitrite-Dipstick Negative (Negative); Occult Blood-Urine Negative /ul (Negative); Protein-Dipstick 15 mg/dl (Negative); Specific Gravity, Urine 1.020 (1.002-1.030); Urine Bilirubin Dipstick Negative (Negative)
[2024-12-06 21:52] LABS: Red Blood Cells-Urine 0-5 SEEN /hpf (0-5); Squamous Epithelial Cells - UA 5-10 SEEN /hpf (5-10)
== END | disposition home or self-care (01) ==
LOC: MTLAB 16:25
PROVIDERS: PCP Family Medicine; Referring Provider Family Medicine; Visit Provider Family Medicine
DX: F17.210 Nicotine dependence, cigarettes, uncomplicated (principal); E66.9 Obesity, unspecified; R53.83 Other fatigue; R73.09 Other abnormal glucose
CPT/HCPCS: 36415; 80053; 80061; 81001; 82306; 83036; 84439; 84443; 85025

== ENCOUNTER 2025-03-19 22:59 | Emergency (ER) | payer BC, SELFPAY ==
[2025-03-19 23:00] VITALS: BP 175/103; PULSE 80; RESP 16; TEMP 36.3; O2SAT 100; BMI 36.0
[2025-03-19 23:28] VITALS: BP 172/92; PULSE 62; RESP 16; O2SAT 100
[2025-03-19 23:31] LABS: Hematocrit 43.3 % (37-47); Hemoglobin 13.9 g/dL (12.0-15.0); Immature Granulocytes Count 0.050 X10^3/uL (0.0-0.0); Mean Corp Hgb Conc 32.1 g/dL (32-36); Mean Corpuscular Volume 85.1 fL (81-99); Mean Platelet Vol. 10.5 fl (6.2-12.0); NRBC Flagged by Analyzer 0 % (0-5); Platelet Count 406 K/mm3 (150-450); RBC Distribution Width CV 14.5 % (11.6-14.6); RBC Distribution Width SD 45.1 fl (35.1-43.9); Red Blood Count 5.09 M/mm3 (4.2-5.4); White Blood Count 13.8 K/mm3 (4.4-11.0)
--- NOTE | 2025-03-19 23:32 | US_ITS ---
PROCEDURE: GALLBLADDER 03/19/2025 REASON FOR EXAM: RUQ PAIN / ? ACUTE CHOLECYSTITIS TECHNIQUE: Procedure Code: USGB Modality: US Procedure: GALLBLADDER COMPARISON: 10/23/2024. FINDINGS: The liver measures 16.8 cm. Unremarkable hepatic echogenicity. Nondilated biliary tree. Distended gallbladder measuring 10.4 cm. Positive sonographic Xie. Multiple gallstones are noted. No pericholecystic free fluid is seen. Gallbladder wall thickness measuring 3.1 mm. Nondilated common bile duct measuring 4.3 mm. Unremarkable visualized pancreatic tail. Unremarkable right kidney measuring 11.1 x 4.9 x 5.6 cm. Normal right renal cortical thickness measuring 1.4 cm. US/Gallbladder IMPRESSION: Distended gallbladder containing multiple gallstones. No definite sonographic evidence of acute cholecystitis. Reading Location: [place] [address]
[2025-03-19] MEDS: 0.9% Normal Saline (1000mL) 1,000 ML 999 ML IV (23:38)
--- NOTE | 2025-03-19 23:39 | EDS_ITS ---
HPI History of Present Illness Chief Complaint: Abd Pain Informant: patient and spouse/S.O. Narrative Narrative: Patient is a 45-year-old female with past medical history of gallstones. She states that she ate dinner tonight around 7 PM and then around 8 or 830 noticed pain mainly in the right upper quadrant. She states there is associated nausea without vomiting. She denies any fevers chills loose stool or diarrhea or dysuria. She states no one else at home is sick and she denies any known sick contact. She states this does remind her of her previous gallbladder attack roughly 6 months ago but she states this seems to be more intense. As symptoms were not resolving with time and puro-uac-cydrobv medication she presents for evaluation [facility] Medical History Marijuana smoker Home Medications ?Medication ?Instructions ?Recorded ?Last Taken ?Type ondansetron 4 mg disintegrating 4 mg PO TID PRN nausea and 03/20/25 Unknown Rx tablet vomiting #21 tabs oxycodone-acetaminophen 5 mg-325 1 tab PO Q6H PRN pain 3 days #12 03/20/25 Unknown Rx mg tablet (Percocet) tabs Allergy/AdvReac Type Severity Reaction Status Date / Time latex Allergy Rash Verified 03/19/25 23:01 diphenhydramine HCl (From AdvReac Other Verified 03/19/25 23:01 Benadryl) Surgical History Hx of section Social History (Updated 10/23/24 @ 06:[address] Garfield Bruner MD) household members: spouse and children Smoking Status: Current every day smoker tobacco type: cigarettes ROS ROS ED Constitutional Constitutional ED: Denies chills or fever(s) Eyes Eyes: Denies change in vision ENT ENT ED: Denies sore throat Cardiovascular Cardiovascular: Denies chest pain Respiratory/Chest Respiratory/Chest: Denies cough or dyspnea Gastrointestinal Gastrointestinal: Reports abdominal pain and nausea; Denies diarrhea or vomiting Genitourinary Genitourinary ED: Denies dysuria or hematuria Musculoskeletal Musculoskeletal: Denies back pain or myalgias Integumentary Denies rash Neurologic Neurologic: Denies headache(s) Hematologic/Lymphatic Hematologic/Lymphatic: Denies easy bleeding or easy bruising EXAM Physical Exam Const Vital Signs: 03/19/25 23:00 03/19/25 23:28 03/20/25 01:00 Temperature 97.3 F L Temperature Source Oral Pulse Rate 80 62 76 Respiratory Rate 16 16 16 Blood Pressure 175/103 H 172/92 H 146/87 H Blood Pressure Mean 127 118 106 Pulse Ox 100 100 100 Oxygen Delivery Method Room Air Room Air Room Air 03/20/25 01:41 Temperature 98.1 F Temperature Source Pulse Rate 77 Respiratory Rate 16 Blood Pressure 121/73 H Blood Pressure Mean 89 Pulse Ox 99 Oxygen Delivery Method Positive well nourished, well developed and obese General Appearance ED: well developed; Negative for pallor Nutritional Appearance: obese HEENT Reports moist mucous membranes HEENT Narrative: Normocephalic atraumatic No tongue or lip swelling no oral lesions no airway edema or compromise No secondary findings in the posterior pharynx to suggest infection Eyes PERRL and EOMs intact bilaterally General Eye ED: Negative for scleral icterus Neck supple Resp normal respiratory effort and clear to auscultation bilaterally Cardio regular rate and regular rhythm Rate: other Other Details: Heart is regular rate and rhythm without murmurs rubs or gallops Radial and carotid pulses are equal and symmetric GI non-distended and no masses GI Narrative: Abdomen is soft and nondistended with normal active bowel sounds Patient has pain with palpation in the midepigastric and right upper quadrant region Pain is greatest in the right upper quadrant; there is voluntary guarding at this site but negative Xie sign No pulsatile mass No peritoneal signs Auscultation: normoactive bowel sounds Palpation: soft Back/Spine no CVA tenderness Extremity normal to inspection Neuro oriented x3, CN's II-XII intact bilaterally and no sensory deficits noted Sensorium / Orientation: alert Motor Exam: strength 5/5 throughout Psych mental status grossly normal Skin no rashes or lesions noted and no wounds General Skin Exam: Negative for jaundice or pallor MDM MDM MDM Narrative Medical decision making narrative: Patient arrived to the ER hypertensive but is in pain and otherwise vitals are stable. Her previous ER visit from October was reviewed and it was noted she had gallstones on ultrasound. With the patient reporting eating a Caesar salad and a cream chicken this evening and then developing upper abdominal pain greatest in the right upper quadrant this is most likely biliary colic. In order to assess for acute cholecystitis or gallstone pancreatitis or atypical presentation for UTI/pyelonephritis or kidney stone I did elect to perform basic laboratory studies with urine sample. I performed a gallbladder ultrasound as this is a more sensitive study for the gallbladder. White count is elevated at 13.8 and there is mild left shift with her neutrophil count being elevated at 9.1. Otherwise lipase is normal going against pancreatitis liver enzymes are n ot elevated urine sample does not show findings of blood going against stone nor other findings of infection to suggest UTI/pyelonephritis. The ultrasound showed a distended gallbladder with gallbladder stones but no signs of Pieter cholecystic fluid to suggest acute cholecystitis. I did discuss the case with the general surgeon on-call Dr. Stovall. She reviewed the ultrasound from today as well as October and agrees there is no obvious findings of acute cholecystitis. She states that with the elevated white count she would recommend a CT scan of the abdomen pelvis to ensure there is no other cause for the leukocytosis. I informed the patient of the consultation with Dr. Stovall her recommendation. However the patient states that her pain is much improved and she does not want to get the CT scan at this time and will follow-up with her family doctor. The patient's vitals have improved consistent with her improvement of pain. On reevaluation there is now no guarding when I palpate the right upper quadrant like there was when she initially arrived. Therefore as the patient does not want to have the CT scan performed at this time and she has had improvement of pain as well as improvement of vitals and the ultrasound is showing no signs of infection such as acute cholecystitis she will be discharged and can follow-up as an outpatient History & Record Review Discussion w/independent historian: Patient and Significant other Additional record(s) reviewed:: Prior ED visit Lab Data Attestation: I reviewed the patient's lab results. Labs: Laboratory Results - last 24 hr 03/19/25 03/19/25 23:20 23:43 WBC 13.8 H RBC 5.09 Hgb 13.9 Hct 43.3 MCV 85.1 MCH 27.3 MCHC 32.1 RDW Std Deviation 45.1 H RDW Coeff of [place] 14.5 Plt Count 406 MPV 10.5 Immature Gran % (Auto) 0.400 Neut % (Auto) 66.2 Lymph % (Auto) 26.0 [place] % (Auto) 4.8 Eos % (Auto) 2.1 Baso % (Auto) 0.5 Absolute Neuts (auto) 9.1 H Absolute Lymphs (auto) 3.59 Nucleated RBC % 0 Sodium 138 Potassium 3.9 Chloride 104 Carbon Dioxide 20.2 L Anion Gap 14 BUN 17 Creatinine 0.70 Estim Creat Clear Calc 113.63 Est GFR (MDRD) Non-Af 109 BUN/Creatinine Ratio 24.1 H Glucose 128 H Calcium 9.8 Total Bilirubin 0.21 AST 15 ALT 20 Alkaline Phosphatase 77 Total Protein 7.8 Albumin 4.5 Globulin 3.3 Albumin/Globulin Ratio 1.4 Lipase 37 Serum , Qual NEGATIVE Urine Color Yellow Urine Clarity Clear Urine pH 6.0 Ur Specific [place] 1.020 Urine Protein Negative Urine Glucose (UA) Normal Urine Ketones Negative Urine Occult Blood 10 H Urine Nitrite Negative Urine Bilirubin Negative Urine Urobilinogen Normal Ur Leukocyte Esterase Negative Urine RBC 0-5 SEEN Urine WBC 0-5 SEEN Ur Squamous Epith Cells 10-25 SEEN Urine Bacteria 1+ Urine Mucus 0 SEEN Radiography Diagnostic Testing: Clinical Impression(s) from Imaging Studies Gallbladder Ultrasound 03/19/25 23:32 IMPRESSION: Distended gallbladder containing multiple gallstones. No definite sonographic evidence of acute cholecystitis. Reading Location: [place] [id number] Management Discussion w/another healthcare provider: [employer] Discharge Plan Triage Chief Complaint: Abd Pain ED Provider: Mandeep Blanc Dx/Rx/DC Orders Clinical Impression: Biliary colic, Cholelithiasis Instructions: ED Gallstones with Biliary Colic Prescriptions: New oxycodone-acetaminophen [Percocet] 5-325 mg tablet 1 tab PO Q6H PRN (Reason: pain) 3 Days Qty: 12 0RF ondansetron 4 mg tablet,disintegrating 4 mg PO TID PRN (Reason: nausea and vomiting) Qty: 21 0RF Stand Alone Forms: ED Work / School Excuse Primary Care Provider: Rodolfo Lentz Referrals: Rodolfo Lentz MD [Primary Care Provider, Family Practice] Chaparrita Stovall MD [Med Staff - Active Staff, General Surgery] Activity Restrictions/Additional Instructions: Please eat smaller portions and a bland diet to help prevent recurrent gallbladder spasm and pain. If pain does recur please take 1 or 2 Percocet and wait roughly 30 minutes to an hour to see if this helps improve or resolve pain. If pain persists or he develop a fever or have any further concerns return to the ER for repeat evaluation. Please follow-up with general surgery to discuss need for gallbladder removal Print Language: [place] Disposition Disposition: Home, Self Care Discharge Date/Time: 03/20/25 01:47
[2025-03-19 23:47] LABS: Internal QC Validated? YES +Cl - CLEAR BKGD; Pregnancy, Serum, hCG Quali. NEGATIVE Negative
[2025-03-19 23:50] LABS: Mucous, Urine 0 SEEN /hpf (<or=2+)
[2025-03-19 23:51] LABS: Color, Urine Yellow (Yellow); Glucose, Dipstick Normal (Normal); Ketone-Dipstick Negative (Negative); Leukocyte Esterase-Dipstick Negative /ul (Negative); Nitrite-Dipstick Negative (Negative); Occult Blood-Urine 10 /ul (Negative); Protein-Dipstick Negative (Negative); Specific Gravity, Urine 1.020 (1.002-1.030); Urine Bilirubin Dipstick Negative (Negative)
[2025-03-19 23:55] LABS: AST(SGOT) 15 U/L (<=31); Alanine Aminotransfer ALT/SGPT 20 U/L (<=34); Albumin, Serum 4.5 g/dL (3.5-5.0); Alkaline Phosphatase 77 U/L (35-104); Anion Gap 14 (5-15); BUN 17 mg/dL (4-19); BUN/Creat Ratio 24.1 RATIO (10-20); Calcium,Total 9.8 mg/dL (7.6-11.0); Carbon Dioxide 20.2 mmol/L (21.0-32.0); Chloride 104 mmol/L (98-108); Estimated Creatinine Clearance 113.63 ml/min (50-250); Globulin 3.3 g/dL (2.2-4.2); Glucose 128 mg/dL (70-99); Lipase 37 U/L (13-75); Potassium 3.9 mmol/L (3.3-5.1)
[2025-03-20 00:02] LABS: Red Blood Cells-Urine 0-5 SEEN /hpf (0-5); Squamous Epithelial Cells - UA 10-25 SEEN /hpf (5-10)
[2025-03-20 01:00] VITALS: BP 146/87; PULSE 76; RESP 16; O2SAT 100
[2025-03-20] MEDS: HYDROmorphone 0.5 MG/0.5 ML SYRINGE IV (01:23)
[2025-03-20 01:41] VITALS: BP 121/73; PULSE 77; RESP 16; TEMP 36.7; O2SAT 99
== END 2025-03-20 01:47 | disposition home or self-care (01) ==
PROVIDERS: Emergency Provider Emergency Medicine; PCP Family Medicine; Visit Provider Emergency Medicine
DX: K80.20 Calculus of gallbladder without cholecystitis without obstruction (principal); F17.210 Nicotine dependence, cigarettes, uncomplicated; E66.9 Obesity, unspecified
CPT/HCPCS: 76705; 80053; 81001; 83690; 84703; 85025; 96361; 96374; 96375; 96376; 99284; A4216; J2405